=== PATIENT | female | born 1955 | race Caucasian/White ===

== ENCOUNTER → 2016-11-13 18:31 | Outpatient (CLI) | payer MEDICAID ==
[2014-02-25 14:29] VITALS: BMI 29.9
[~2016-11-13 18:31] MED LIST: PRINIVIL20 MG PO
== END | disposition home or self-care (01) ==
LOC: D.MAMMO 16:00
DX: Z12.31 Encounter for screening mammogram for malignant neoplasm of breast (principal)

== ENCOUNTER → 2016-11-27 09:11 | Outpatient (CLI) | payer MEDICAID ==
[2014-02-25 14:29] VITALS: BMI 29.9
== END | disposition home or self-care (01) ==
LOC: D.US 09:11
DX: R92.8 Other abnormal and inconclusive findings on diagnostic imaging of breast (principal)

== ENCOUNTER 2017-02-12 08:25 | Outpatient (CLI) | payer MEDICAID ==
[2014-02-25 14:29] VITALS: BMI 29.9
== END 2017-02-12 11:21 ==
LOC: D.MAMMO 08:25
DX: R92.8 Other abnormal and inconclusive findings on diagnostic imaging of breast (principal)

== ENCOUNTER 2017-04-20 13:04 | Emergency (ER) | payer MEDICAID ==
[2014-02-25 14:29] VITALS: BMI 29.9
[2017-04-20 13:35] LABS: BASOPHILS 0.5 % (0-2); EOSINOPHILS 0.8 % (0-7); HEMATOCRIT 45.4 % (36.0-48.0); HEMOGLOBIN 15.5 g/dL (12-16); IMMATURE GRANULOCYTES 0.2 % (0-5); LYMPHOCYTES 37.1 % (15-50); MCH 32.2 pg (26.0-34.0); MCHC 34.1 g/dL (31.0-37.0); MCV 94.2 fL (80.0-100.0); MEAN PLATELET VOLUME 10.2 fL (7.4-10.4); MONOCYTES 7.5 % (2-11); NEUTROPHILS 53.9 % (40-80); PLATELET COUNT 194 10x3/uL (130-400); RBC 4.82 10x6/uL (4.00-5.40); RDW 12.4 % (11.5-14.5); WBC 9.4 10x3/uL (4.8-10.8)
[2017-04-20 13:49] LABS: ALBUMIN 3.6 g/dL (3.4-5.0); ALKALINE PHOSPHATASE 91 U/L (46-116); ALT (SGPT) 17 U/L (10-68); BILIRUBIN - TOTAL 0.54 mg/dL (0.2-1.3); CALC OSMOLALITY 277 mosm/kg (275-300); CALCIUM 8.6 mg/dL (8.5-10.1); CARBON DIOXIDE 27.3 mmol/L (21.0-32.0); CHLORIDE - SERUM 103 mmol/L (98-107); CREATININE - SERUM 0.9 mg/dL (0.6-1.3); GLUCOSE 110 mg/dL (74-106); POTASSIUM - SERUM 3.3 mmol/L (3.5-5.1); PROTEIN - SERUM 7.2 g/dL (6.4-8.2); SODIUM 139 mmol/L (136-145); UREA NITROGEN 9 mg/dL (7-18); eGFR NON AFRICAN AMERICAN 67 mL/min (90-120)
[2017-04-20 14:00] LABS: CHOL - HDL RATIO 6.5 ratio (2.3-4.1); CHOLESTEROL, TOTAL 267 mg/dL (0-200); CKMB 1.1 U/L (0.0-3.6); CREATINE KINASE 90 UL (21-215); HDL CHOLESTEROL 41 mg/dL (32-96); LDL CHOLESTEROL 176 mg/dL (0-100); LDL-HDL RATIO 4.3 ratio (1.5-3.5); TRIGLYCERIDE 254 mg/dL (30-200)
[2017-04-20 14:08] LABS: TROPONIN-I < 0.017 ng/mL (0.000-0.060)
== END 2017-04-20 16:12 | disposition home or self-care (01) ==
LOC: D.ER 13:04
PROVIDERS: Emergency Medicine
DX: R07.9 Chest pain, unspecified (principal); Y84.8 Other medical procedures as the cause of abnormal reaction of the patient, or of later complication, without mention of misadventure at the time of the procedure; R06.02 Shortness of breath; I10 Essential (primary) hypertension; F17.200 Nicotine dependence, unspecified, uncomplicated; R06.00 Dyspnea, unspecified; R11.0 Nausea; M54.9 Dorsalgia, unspecified; M54.2 Cervicalgia

== ENCOUNTER 2017-04-29 11:52 | Outpatient (CLI) | payer MEDICAID ==
[~2017-04-29] VITALS: Ht 167.6 cm; Wt 74.5 kg
--- NOTE | ~2017-04-29 | HEMODYNAMI ---
PATIENT:JANETTE MELENDEZ MEDICAL RECORD: [id number] : 57 LOCATION:[place] ADMISSION DATE: 04/29/17 Generatedon:04/29/201715:36 Patient name: JANETTE MELENDEZ Patient #: [id number] SSN: : 1955 Date of study: 04/29/2017 Page: Of Hemodynamic Procedure Report Patient Data Patient Demographics Procedure consent was obtained First Name: JANETTE Gender: Female Last Name: NORA : 1955 Middle Initial: FRANCESCO Age: 62 year(s) Patient #: [id number] Race: Unknown Additional ID: [id number] Contact details [address]: [address] [place] [address] State: [place] City: [place] Zip code: [address] Past Medical History Allergies Allergen Reaction Date Comments Reported Aspirin 04/29/2017 Penicillins 04/29/2017 Sulfa drugs 04/29/2017 NSAIDs 04/29/2017 Admission Admission Data Admission Date: 04/29/2017 Admission Time: 11:52 Procedure Procedure Types Cath Procedure Diagnostic Procedure C [facility] w/Coronaries Miscellaneous Procedures Moderate Sedation up to 15 minutes Procedure Description Procedure Date Procedure Date: 04/29/2017 Procedure Start Time: 15:25 Procedure End Time: 15:36 Procedure Staff Name Function Paul Sharp MD Performing Physician Norah Abernathy RT Scrub Reid Grissom RT Scrub Marcellus Almanzar RN Nurse Saran Pearson RN Chopping Machine Operator Kathrine Weeks RT Monitor Procedure Data Cath Procedure Fluoroscopy Diagnostic fluoroscopy Total fluoroscopy Time: 2.7 time: 2.7 min min Diagnostic fluoroscopy Total fluoroscopy dose: 341 dose: 341 mGy mGy Contrast Material Contrast Material Type Amount (ml) Isovue 300 61 Entry Location Entry Primary Successful Side Size Upsize Upsize Entry Closure Lopez ccessful Closure Location (Fr) 1 (Fr) 2 (Fr) Remarks Device Remarks Radial Right 6 Fr Mechanical artery Short Compression Estimated blood loss: 10 ml Diagnostic catheters Device Type Used For End Catheter Placement Diagnostic Terumo 5Fr Right Coronary [place]uda 110cm catheter Angiography Diagnostic Terumo 5Fr Left Coronary [place] 110cm catheter Angiography Diagnostic Terumo 5Fr LV Angiography Saluda 110cm catheter Procedure Complications No complications Procedure Medications Medication Administration Route Dosage 0.9% NaCl I.V. 100 ml/hr Oxygen NC 2 l/min Heparin Flush Bag added to field 2 bags (1000units/500ml NS) Versed I.V. 2 mg Fentanyl I.V. 100 mcg Radial Cocktail I.A. 1 syringe (Verapomil 2mg/Nitro 400mcg/Heparin 1500units) Hemodynamics Rest Heart Rate: 65 (bpm) Pressure Samples Time Site Value (mmHg) Purpose Heart Use Rate(bpm) 15:32 LV 129/-7,7 EDP 66 15:33 AO 132/73(101) Pullback 88 15:33 LV 171/-13,14 Pullback 88 Gradients Valve Time Site 1 Site 2 Mean SEP/DFP Peak To Heart Use (mmHg) (sec/min) Peak Rate (mmHg) (bpm) Aortic 15:33 LV AO 20 24 39 88 171/-13,14 132/73(101) Calculations Valve P-P Mean Valve Index Valve Source Name Gradient Area Flow (cm2) Aortic 39 20 39 20 Snapshots Pre Cath Intra NCS Post Cath Vital Signs Time Heart Resp SPO2 etCO2 [id number] NIBP (mmHg) Rhythm Pain Sedation Rate (ipm) (%) (mmHg) (mmHg) Status Level (bpm) 15:15:18 67 18 96 0 0 160/92(114) NSR 0 (11) 10(A) , No pain 15:19:32 71 19 98 0 0 148/81(102) NSR 0 (11) 10(A) , No pain 15:23:50 60 17 97 0 0 122/71(86) NSR 0 (11) 10(A) , No pain 15:28:02 71 15 95 0 0 113/58(94) NSR 0 (11) 9(A) , No pain 15:32:10 65 16 92 0 0 102/60(84) NSR 0 (11) 10(A) , No pain Medications Time Medication Route Dose Verified Delivered Reason Notes Effectiveness by by 15:08:14 0.9% NaCl I.V. 100 Marcellus Marcellus Per ml/hr Jenelle Almanzar physician RN RN 15:08:30 Oxygen NC 2 l/min Marcellus Germain Per Jenelle ivory RN RN 15:08:57 Heparin Flush added 2 bags Marcellus Germain used for Bag to Jenelle Almanzar procedure (1000units/500ml field RN RN NS) 15:20:21 Versed I.V. 2 mg Marcellus Marcellus for sedation Jenelle Almanzar RN, RN 15:20:35 Fentanyl I.V. 100 mcg Marcellus Marcellus for sedation Jenelle Almanzar RN, RN 15:27:34 Radial Cocktail I.A. 1 Marcellus Paul for (Verapomil syringe Jenelle Sharp MD vasodilation 2mg/Nitro RN 400mcg/Heparin 1500units) Procedure Log Time Note 15:00:09 Saran Pearson RN sent for patient. Start room use. 15:00:10 Time tracking: Regular hours 15:00:15 Plan of Care:Hemodynamics will remain stable., Cardiac rhythm will remain stable., Comfort level will be maintained., Respiratory function will remain adequate., Patient/ family verbilizes understanding of procedure., Procedure tolerated without complication., Recovers from procedure without complications.. 15:05:50 Patient received from Pre/Post Procedure Room to [facility]3] 1 Alert and oriented. Tansferred to table in Supine position. 15:05:51 Warm blankets applied, and xiang hugger turned on for patient comfort. 15:05:51 Correct patient and procedure confirmed by team. 15:05:53 Signed procedure consent form obtained from patient. 15:05:54 ECG and BP/O2 sat monitors applied to patient. 15:05:55 Full Disclosure recording started 15:08:14 0.9% NaCl 100 ml/hr I.V. was administered by Marcellus Almanzar RN; Per physician; 15:08:30 Oxygen 2 l/min NC was administered by Marcellus Almanzar RN; Per physician; 15:08:57 Heparin Flush Bag (1000units/500ml NS) 2 bags added to field was administered by Marcellus Almanzar RN; used for procedure; 15:14:10 Vital chart was started 15:14:21 Rhythm: sinus bradycardia 15:14:33 H&P Date Dictated: 04/23/2017 Within 30 days and on chart., H&P Addendum completed by physician on day of procedure. (MUST COMPLETE FOR ALL OUTPATIENTS). 15:14:34 Pre-procedure instructions explained to patient. 15:14:35 Pre-op teaching completed and patient verbalized understanding. 15:15:22 Family in patients room. 15:15:24 Patient NPO since Midnight. 15:15:29 Patient allergic to Aspirin 15:15:34 Patient allergic to Penicillins 15:15:39 Patient allergic to Sulfa drugs 15:15:47 Patient allergic to NSAIDs 15:15:50 Is the patient allergic to Iodine/contrast media? No. 15:15:51 Is patient on blood thinner?No 15:16:02 Patient diabetic? No. 15:16:05 Previous problem with sedation/anesthesia? No ? 15:16:06 Snore? Yes 15:16:07 Sleep apnea? No 15:16:09 Deviated septum? No 15:16:10 Opens mouth fully? Yes 15:16:10 Sticks out tongue? Yes 15:16:12 Airway obstruction? No ? 15:16:16 Dentures? Yes OUT 15:16:19 Pre procedure: right dorsailis pedis pulse 2+ Normal; easily identifiable; not easily obliterated 15:16:21 Modified Charles's test Ulnar < 7 seconds 15:16:23 Patient pain scale 0/10 ?. 15:16:30 IV patent on arrival in left hand with 0.9% NaCl at [facility]. 15:16:32 Lab results completed and on chart. 15:16:37 Right Radial & Right Groin area was prepped with chlora-prep and draped in sterile fashion 15:16:38 Alarms reviewed by R. N. 15:16:38 Sharps counted by scrub and verified by R.N. 15:16:41 Use device set Radial Dx 15:16:42 Acist Syringe opened to sterile field. 15:16:42 Medline Cath Pack opened to sterile field. 15:16:43 Bag Decanter opened to sterile field. 15:16:43 Terumo 6Fr Slender Glidesheath opened to sterile field. 15:16:43 St Jaime 260cm J .035 wire opened to sterile field. 15:16:44 Acist Hand Control opened to sterile field. 15:16:44 Acist Manifold opened to sterile field. 15:16:45 MBrace Wrist Support opened to sterile field. 15:18:13 Final Timeout: patient, procedure, and site verified with staff and physician. All members of the team are in agreement. 15:18:16 Right Radial site verified by team. 15:18:19 Physical assessment completed. ASA score P 2 - A patient with mild systemic disease as per Paul Shrap MD. 15:18:23 Sedation plan: IV Moderate Sedation Versed, Fentanyl 15:18:50 Baseline sample Acquired. 15:20:21 Versed 2 mg I.V. was administered by Marcellus Almanzar RN; for sedation; 15:20:35 Fentanyl 100 mcg I.V. was administered by Marcellus Almanzar RN; for sedation; 15:20:48 Zero performed for pressure channel P1 15:20:52 Zero performed for pressure channel P1 15:20:59 Zero performed for pressure channel P1 15:24:49 Procedure started. 15:25:08 Local anesthetic to right femoral artery with Lidocaine 2% by Paul Sharp MD.INITIAL ACCESS ONLY 15:26:37 A 6 Fr Short sheath was inserted into the Right Radial artery 15:27:34 Radial Cocktail (Verapomil 2mg/Nitro 400mcg/Heparin 1500units) 1 syringe I.A. was administered by Paul Sharp MD; for vasodilation; 15:28:20 A Diagnostic Terumo 5Fr Saluda 110cm catheter was advanced over the wire and used for Right Coronary Angiography. 15:31:00 A Diagnostic Terumo 5Fr Saluda 110cm catheter was advanced over the wire and used for Left Coronary Angiography. 15:31:44 A Diagnostic Terumo 5Fr Saluda 110cm catheter was advanced over the wire and used for LV Angiography. 15:32:13 LV gram done using MUNGUIA 15:32:14 LV hemodynamics recorded. 15:32:16 Injector settings: Ml/sec: 5, Volume: 15, 15:32:52 EF : 60 % 15:33:25 Catheter removed. 15:33:33 Sheath removed intact; hemostasis achieved with Mechanical Compression to the Right Radial artery. 15:33:35 Procedure ended.(Physican Out) 15:33:46 Fluoroscopy time 02.70 minutes. 15:33:50 Fluoroscopy dose: 341 mGy 15:33:50 Flurop Dose total: 341 15:33:54 Contrast amount:Isovue 300 61ml. 15:33:56 Sharps counted by scrub and verified by R.N. 15:33:58 TR band inflated with 12cc of air. 15:33:59 Insertion/operative site no bleeding no hematoma. 15:34:05 Post right radial artery:stable, clean and dry 15:34:08 Post Procedure Pulses reassessed and unchanged 15:34:14 Post-procedure physical assessment completed. ASA score P 2 - A patient with mild systemic disease as per Paul Sharp MD. 15:34:20 Post procedure rhythm: unchanged. 15:34:23 Estimated blood loss: 10 ml 15:34:24 Post procedure instruction explained to patient.Patient verbalizes understanding. 15:34:25 Patient needs reinforcement of post procedure teaching. 15:34:34 Procedure type changed to Cath procedure, Diagnostic procedure, LHC, LHC w/Coronaries, Miscellaneous Procedures, Moderate Sedation up to 15 minutes 15:34:39 Procedure Complication : No complications 15:34:42 See physician's report for complete and final results. 15:35:05 Terumo TR Band Standard opened to sterile field. 15:35:30 Cook 21G 4cm Radial Needle opened to sterile field. 15:35:49 Procedure and supply charges have been captured, reviewed, submitted and are correct. 15:36:22 Vital chart was stopped 15:36:24 Report given to Pre/Post Procedure Room. 15:36:27 Patient transfered to Pre/Post Procedure Room with Stretcher. 15:36:37 Procedure ended. 15:36:37 Full Disclosure recording stopped 15:36:40 End room use (Document Last) Device Usage Item Name Manufacture Quantity Catalog Hospital Part Current Minimal Lot# / Number Charge Number Stock Stock Serial# Code Acist Acist 1 12654 [id number] 876685 220819 20 Syringe Medical Systems Inc Medline Cardinal 1 [id number] 225073 95571 988576 5 Cath Pack Health Bag Microtek 1 2001S [id number] 75201 285688 5 Decanter Medical Inc. Terumo 6Fr Terumo 1 [id number] 352804 470813 531452 [address] Jaime 1 695895 924970 227112 225373 30 260cm J .035 wire Acist Hand Acist 1 14073 983432 779013 547220 5 Control Medical Systems Inc Acist Acist 1 55355 233832 385779 196930 5 Manifold Medical Systems Inc race Advanced 1 140-0250-00 205735 33717 029299 5 Wrist Vascular Support Dynamics Diagnostic Terumo 1 89-3028 788097 707002 149174 5 Terumo 5Fr Saluda 110cm catheter Terumo TR Terumo 1 [id number] 279297 234258 228481 40 Band Standard Cook 21G [facility] 1 [id number] 916005 366153 000117 5 4cm Radial Needle Signature Audit [place] Stage Time Signature Unsigned Intra-Procedure 04/29/2017 Kathrine 3:36:51 PM Counts RT(R) Signatures Monitor : Kathrine Signature : Counts RT Date : Time : [address] [address]
[2017-04-29 12:37] LABS: BASOPHILS 0.5 % (0-2); HEMATOCRIT 44.5 % (36.0-48.0); HEMOGLOBIN 15.2 g/dL (12-16); IMMATURE GRANULOCYTES 0.4 % (0-5); LYMPHOCYTES 41.9 % (15-50); MCH 32.3 pg (26.0-34.0); MCHC 34.2 g/dL (31.0-37.0); MCV 94.5 fL (80.0-100.0); MEAN PLATELET VOLUME 10.1 fL (7.4-10.4); MONOCYTES 9.2 % (2-11); PLATELET COUNT 191 10x3/uL (130-400); RBC 4.71 10x6/uL (4.00-5.40); RDW 12.4 % (11.5-14.5); WBC 9.8 10x3/uL (4.8-10.8)
[2017-04-29] MEDS ORDERED: METOPROLOL TART25 MG PO (12:40)
[2017-04-29 12:47] LABS: CALC OSMOLALITY 276 mosm/kg (275-300); CALCIUM 8.5 mg/dL (8.5-10.1); CARBON DIOXIDE 25.9 mmol/L (21.0-32.0); CHLORIDE - SERUM 104 mmol/L (98-107); CREATININE - SERUM 0.6 mg/dL (0.6-1.3); GLUCOSE 100 mg/dL (74-106); POTASSIUM - SERUM 4.3 mmol/L (3.5-5.1); SODIUM 139 mmol/L (136-145); UREA NITROGEN 10 mg/dL (7-18); eGFR NON AFRICAN AMERICAN > 90 mL/min (90-120)
[2017-04-29 12:49] VITALS: BP 136/74; Ht 167.6 cm; Wt 74.5 kg
--- NOTE | 2017-04-29 16:00 | NUR ---
SANDWICH AND COLA SERVED, TR BAND INTACT-NO BLEEDING AT SITE,VSS
--- NOTE | 2017-04-29 16:30 | NUR ---
NO CHANGES IN ASSESSMENT, TR BAND INTACT, RESTING
--- NOTE | 2017-04-29 18:10 | NUR ---
IV D'C WITH CATH TIP INTACT, WRITTEN AND VERBAL INSTRUCTIONS GIVEN TO PT AND DAUGHTER-VERBAL UNDERSTANDING NOTED. TR BAND OFF WITH BANDAID PLACED OVER SITE AND BRACE REAPPLIED. D'C HOME WITH DAUGHTER.
== END 2017-04-29 18:15 | disposition home or self-care (01) ==
LOC: D.CATH 11:52
PROVIDERS: Internal Medicine Cardiovascular Disease
DX: I20.9 Angina pectoris, unspecified (principal); Z01.812 Encounter for preprocedural laboratory examination

== ENCOUNTER 2017-07-14 09:48 | Emergency (ER) | payer MEDICAID ==
[2017-04-29 12:49] VITALS: BMI 26.5
[~2017-07-14 09:48] MED LIST changes: +METOPROLOL TART25 MG PO
[2017-07-14 11:14] LABS: BASOPHILS 0.4 % (0-2); EOSINOPHILS 1.4 % (0-7); HEMATOCRIT 43.5 % (36.0-48.0); HEMOGLOBIN 14.9 g/dL (12-16); IMMATURE GRANULOCYTES 0.4 % (0-5); LYMPHOCYTES 34.5 % (15-50); MCH 32.1 pg (26.0-34.0); MCHC 34.3 g/dL (31.0-37.0); MCV 93.8 fL (80.0-100.0); MEAN PLATELET VOLUME 10.5 fL (7.4-10.4); MONOCYTES 10.3 % (2-11); PLATELET COUNT 188 10x3/uL (130-400); RBC 4.64 10x6/uL (4.00-5.40); RDW 12.8 % (11.5-14.5); WBC 8.5 10x3/uL (4.8-10.8)
[2017-07-14 12:52] LABS: ALBUMIN 3.3 g/dL (3.4-5.0); ALKALINE PHOSPHATASE 90 U/L (46-116); ALT (SGPT) 26 U/L (10-68); BILIRUBIN - TOTAL 0.51 mg/dL (0.2-1.3); CALC OSMOLALITY 276 mosm/kg (275-300); CALCIUM 8.8 mg/dL (8.5-10.1); CARBON DIOXIDE 22.9 mmol/L (21.0-32.0); CHLORIDE - SERUM 106 mmol/L (98-107); CREATININE - SERUM 0.7 mg/dL (0.6-1.3); GLUCOSE 99 mg/dL (74-106); LIPASE 177 U/L (73-393); POTASSIUM - SERUM 4.1 mmol/L (3.5-5.1); SODIUM 139 mmol/L (136-145); UREA NITROGEN 10 mg/dL (7-18); eGFR NON AFRICAN AMERICAN 90 mL/min (90-120)
[2017-07-14 15:20] LABS: APPEARANCE CLEAR (CLEAR); BILIRUBIN NEGATIVE (NEGATIVE); COLOR YELLOW (YELLOW); GLUCOSE NEGATIVE (NEGATIVE); KETONE NEGATIVE (NEGATIVE); NITRITE NEGATIVE (NEGATIVE); PROTEIN NEGATIVE (NEGATIVE); UROBILINOGEN NORMAL (NORMAL)
[2017-07-14 15:22] LABS: BACTERIA FEW /hpf (NONE SEEN); EPITHELIAL CELLS 0-5 /hpf (0-5); RED CELLS - URINE OCC /hpf (0-5); WHITE CELLS - URINE OCC /hpf (0-5)
== END 2017-07-14 16:18 | disposition home or self-care (01) ==
LOC: D.ER 09:48
PROVIDERS: Emergency Medicine
DX: R10.9 Unspecified abdominal pain (principal); I10 Essential (primary) hypertension

== ENCOUNTER → 2017-07-23 13:16 | Outpatient (CLI) | payer MEDICAID ==
[2017-04-29 12:49] VITALS: BMI 26.5
== END | disposition home or self-care (01) ==
LOC: D.RAD 13:16
DX: R10.9 Unspecified abdominal pain (principal)

== ENCOUNTER 2017-10-05 10:08 | Emergency (ER) | payer MEDICAID ==
[2017-04-29 12:49] VITALS: BMI 26.5
[2017-10-05 10:32] LABS: BASOPHILS 0.5 % (0-2); EOSINOPHILS 1.1 % (0-7); HEMATOCRIT 44.9 % (36.0-48.0); HEMOGLOBIN 15.4 g/dL (12-16); IMMATURE GRANULOCYTES 0.5 % (0-5); LYMPHOCYTES 39.7 % (15-50); MCH 32.4 pg (26.0-34.0); MCHC 34.3 g/dL (31.0-37.0); MCV 94.5 fL (80.0-100.0); MONOCYTES 8.6 % (2-11); NEUTROPHILS 49.6 % (40-80); PLATELET COUNT 206 10x3/uL (130-400); RBC 4.75 10x6/uL (4.00-5.40); RDW 12.6 % (11.5-14.5); WBC 8.9 10x3/uL (4.8-10.8)
[2017-10-05 10:54] LABS: APPEARANCE CLEAR (CLEAR); COLOR YELLOW (YELLOW)
[2017-10-05 10:55] LABS: BILIRUBIN NEGATIVE (NEGATIVE); GLUCOSE NEGATIVE (NEGATIVE); KETONE NEGATIVE (NEGATIVE); NITRITE NEGATIVE (NEGATIVE); PROTEIN NEGATIVE (NEGATIVE); UROBILINOGEN NORMAL (NORMAL)
[2017-10-05 11:08] LABS: ALBUMIN 3.6 g/dL (3.4-5.0); ALKALINE PHOSPHATASE 84 U/L (46-116); ALT (SGPT) 18 U/L (10-68); BILIRUBIN - TOTAL 0.49 mg/dL (0.2-1.3); CALC OSMOLALITY 283 mosm/kg (275-300); CALCIUM 8.6 mg/dL (8.5-10.1); CARBON DIOXIDE 27.9 mmol/L (21.0-32.0); CHLORIDE - SERUM 106 mmol/L (98-107); CREATININE - SERUM 0.7 mg/dL (0.6-1.3); GLUCOSE 99 mg/dL (74-106); POTASSIUM - SERUM 4.1 mmol/L (3.5-5.1); PROTEIN - SERUM 7.2 g/dL (6.4-8.2); SODIUM 143 mmol/L (136-145); UREA NITROGEN 10 mg/dL (7-18); eGFR NON AFRICAN AMERICAN 90 mL/min (90-120)
[2017-10-05 11:15] LABS: CKMB 1.8 U/L (0.0-3.6); CREATINE KINASE 83 UL (21-215); MAGNESIUM - SERUM 2.1 mg/dL (1.8-2.4); PRO BNP 134 pg/mL (0-125)
[2017-10-05 11:18] LABS: TROPONIN-I < 0.017 ng/mL (0.000-0.060)
== END 2017-10-05 12:05 | disposition home or self-care (01) ==
LOC: D.ER 10:08
PROVIDERS: Family Medicine
DX: G45.9 Transient cerebral ischemic attack, unspecified (principal); R42 Dizziness and giddiness; I10 Essential (primary) hypertension

== ENCOUNTER 2018-05-25 07:38 | Inpatient (IN) | payer MEDICAID ==
[~2018-05-25] VITALS: Ht 167.6 cm; Wt 86.4 kg
[2018-05-25] VITALS (7 sets, daily range): BP systolic 117–170; BP diastolic 65–88; BMI 30.7; BMI 30.6
--- NOTE | ~2018-05-25 | EC ---
PATIENT:JANETTE MELENDEZ DATE OF SERVICE: 05/25/18 SEX: F MEDICAL RECORD: [id number] DATE OF : [birth year] LOCATION:D.M2 D.213 AGE OF PATIENT: 63 ADMISSION DATE: 05/25/18 REFERRING PHYSICIAN: INTERPRETING PHYSICIAN: FRACISCO LUKE MD ECHOCARDIOGRAM REPORT ECHO CHARGES 4 ECHO COMPLETE Date: 05/26/18 CLINICAL DIAGNOSIS: CP, DYSPNEA, ECHOCARDIOGRAPHIC MEASUREMENTS (adult normal given) AC root (d.<3.7cm) 2.9 cm LV Septum d (<1.2 cm> 1.9 cm Valve Excursion 1.1 cm LV Septum (systole) 2.0 cm Left Atria (s.<4.0cm> 3.1 cm LVPW d(<1.2cm) 1.0 cm RV (d.<2.3cm) 3.4 cm LVPW (sytole) 1.1 cm LV diastole(<5.6CM) 4.6 cm MV E-F(>70mm/sec) cm LV systole 3.0 cm LVOT Diameter 1.6 cm MV exc.(>10mm) cm Est.ejection fraction (50-75%) % DOPPLER: LVIT cm/sec A 78 cm/sec E 77 cm/sec LA cm/sec RVSP 27.8 mmHg LVOT cm/sec AOP1/2T m/s Asc. Ao cm/sec RVOT 62 cm/sec RA cm/sec PA 70 cm/sec AV Gradient Peak 10.1 mmHg AV Mean 5.1 mmHg AV Area 2.1 cm MV Gradient Peak 3.6 mmHg MV Mean 2.1 mmHg MV Area cm COMMENTS: Dobie Worker: Jatin DUCKWORTH Marketing Forecaster: 3 Dr. Solitario TAPE# PACS Pericardial Effusion N DATE OF SERVICE: 05/26/2018 ECHOCARDIOGRAM DATE OF SERVICE: 05/26/2018 FINDINGS: 1. Left ventricular chamber size is within normal limits. Left ventricular systolic function is normal. Overall ejection fraction estimated at 60%. 2. Left atrium, right atrium and right ventricular chamber sizes are within ECHOCARDIOGRAM REPORT [id number] JANETTE MELENDEZ normal limits. 3. Valvular structures have normal structure and motion. 4. Doppler interrogation reveals trace mitral regurgitation, mild tricuspid regurgitation, no other valvular insufficiency or stenosis. Pulmonary systolic pressure is estimated 28 mmHg. 5. No evidence of pericardial effusion or left ventricular thrombus. TRANSINT:[id number] Voice Confirmation ID: [id number] DOCUMENT ID: [id number] FRACISCO LUKE MD at 1722 CC: [id number] DICTATION DATE: 05/26/18 1534 AXLE AND FRAME MECHANIC: 05/26/18 1540 ADM IN [facility] [address] [place] [id number]
--- NOTE | ~2018-05-25 | CN ---
PATIENT NAME:JANETTE DURAN MEDICAL RECORD: [id number] : 57 LOCATION:D. D.2131 ADMIT DATE: 05/25/18 ACCOUNT: [id number] CONSULTING PHYSICIAN: RAIN GARCIA MD REFERRING PHYSICIAN: CAROLYN YOUSIF MD DATE OF CONSULTATION: 05/25/2018 CONSULT REQUESTING PHYSICIAN: Carolyn Yousif MD REASON FOR CONSULTATION: Pneumonia and pleural effusion. HISTORY OF PRESENT ILLNESS: Ms. Duran is a 63-year-old female who is sick for the last few days. She has quit smoking a week ago. She has worsening shortness of breath on exertion. She has pleuritic type of chest pain. She is coughing without much sputum production. She is also having some fever and chill. The cough is productive with green color sputum. There is no associated nausea or vomiting. No diarrhea. REVIEW OF THE SYSTEMS: As in history of present illness. PAST MEDICAL HISTORY: 1. Hypertension. 2. History of pneumonia. PAST SURGICAL HISTORY: 1. She has cholecystectomy. 2. Hysterectomy. 3. Breast augmentation 37 years ago. ALLERGIES: SHE IS ALLERGIC TO SULFA, ASPIRIN, NSAID, AND PENICILLIN. PRESENT MEDICATIONS: [employer] ([employer])tech was reviewed. PERSONAL AND SOCIAL HISTORY: The patient still continues to smoke. She claims she quit it a week ago. She is nondrinker. FAMILY HISTORY: Noncontributory. PHYSICAL EXAMINATION: GENERAL: The patient is now lying comfortably in bed. She is not in acute distress. VITAL SIGNS: Blood pressure is 134/65, pulse is 95, respiration is 28, temperature is 99.3, and SpO2 is 94% on room air. HEENT: Conjunctivae are pink. Sclerae are not icteric. NECK: Neck is supple. No JVD. CHEST: The chest excursion is equal on both sides. There is wheezing on forceful expiration with bilateral crackles. HEART: Rhythm regular. Normal sound. No murmur. ABDOMEN: Abdomen is soft. Bowel sounds present. No hepatosplenomegaly. RECTAL: Deferred. EXTREMITIES: No cyanosis. No clubbing. No pedal edema. SKIN: The skin is warm. Normal turgor. CENTRAL NERVOUS SYSTEM: The patient is awake and alert. There is no obvious cranial nerve abnormality. The gait was not tested. CONSULT REPORT [id number] JANETTE DURAN CHEST RADIOGRAPH: Bilateral lower lobe infiltrate with bilateral pleural effusion. LABORATORY DATA: CBC; WBC 13.7, hemoglobin 15.3, hematocrit 44.7, and platelet count is 198. Chemistry; sodium 136, potassium 3.8, BUN is 6, and creatinine 0.8. IMPRESSION: 1. Pneumonia, bilateral, most likely community-acquired pneumonia. I doubt aspiration. 2. Bilateral pleural effusion. 3. Acute exacerbation of COPD. 4. Chest pain, most likely pleurisy. 5. Leukocytosis. 6. Tobacco dependence syndrome. RECOMMENDATION: 1. Continue Zithromax and Rocephin. 2. Methylprednisolone IV. 3. Albuterol/ipratropium nebulizer. 4. Brovana and budesonide nebulizer. 5. Followup labs and chest radiograph. 6. Pain control. Dr. Yousif, thank you for involving me in the care of Ms. Duran. TRANSINT:[id number] Voice Confirmation ID: [id number] DOCUMENT ID: [id number] RAIN GARCIA MD at 1301 CC: [id number] DICTATION DATE: 05/25/18 1755 BEADWORKER: 05/25/18 1828 DIS IN 06/02/[address] [place] [id number] [place] [id number]
[2018-05-25] MEDS ORDERED: LEVAQUIN250 MG PO (07:45)
[2018-05-25] MEDS ORDERED: VENTOLIN HFA18 GM INH (07:45)
[2018-05-25 08:06] LABS: BASOPHILS 0.2 % (0-2); EOSINOPHILS 0.2 % (0-7); HEMATOCRIT 44.7 % (36.0-48.0); HEMOGLOBIN 15.3 g/dL (12-16); IMMATURE GRANULOCYTES 0.4 % (0-5); LYMPHOCYTES 18.8 % (15-50); MCH 32.4 pg (26.0-34.0); MCHC 34.2 g/dL (31.0-37.0); MCV 94.7 fL (80.0-100.0); MEAN PLATELET VOLUME 10.2 fL (7.4-10.4); MONOCYTES 14.2 % (2-11); NEUTROPHILS 66.2 % (40-80); PLATELET COUNT 198 10x3/uL (130-400); RBC 4.72 10x6/uL (4.00-5.40); RDW 12.5 % (11.5-14.5); WBC 13.7 10x3/uL (4.8-10.8)
[2018-05-25 08:23] LABS: ALKALINE PHOSPHATASE 97 U/L (46-116); ALT (SGPT) 21 U/L (10-68); BILIRUBIN - TOTAL 0.56 mg/dL (0.2-1.3); CALC OSMOLALITY 270 mosm/kg (275-300); CALCIUM 8.7 mg/dL (8.5-10.1); CARBON DIOXIDE 23.4 mmol/L (21.0-32.0); CHLORIDE - SERUM 104 mmol/L (98-107); CREATININE - SERUM 0.8 mg/dL (0.6-1.3); GLUCOSE 115 mg/dL (74-106); MAGNESIUM - SERUM 1.9 mg/dL (1.8-2.4); POTASSIUM - SERUM 3.8 mmol/L (3.5-5.1); PROTEIN - SERUM 7.2 g/dL (6.4-8.2); SODIUM 136 mmol/L (136-145); UREA NITROGEN 6 mg/dL (7-18); eGFR NON AFRICAN AMERICAN 77 mL/min (90-120)
[2018-05-25 17:41] LABS: CKMB 0.8 U/L (0.0-3.6); CREATINE KINASE 70 UL (21-215)
[2018-05-25 17:46] LABS: TROPONIN-I < 0.017 ng/mL (0.000-0.060)
[2018-05-25 23:19] LABS: CKMB 0.7 U/L (0.0-3.6); CREATINE KINASE 62 UL (21-215)
[2018-05-25 23:20] LABS: TROPONIN-I < 0.017 ng/mL (0.000-0.060)
[2018-05-26 04:00] VITALS: BP 123/65
[2018-05-26 06:23] LABS: CKMB 1.2 U/L (0.0-3.6); CREATINE KINASE 59 UL (21-215)
[2018-05-26 06:25] LABS: TROPONIN-I < 0.017 ng/mL (0.000-0.060)
[2018-05-26 09:18] VITALS: BP 126/60
[2018-05-26 11:45] VITALS: BP 100/53
[2018-05-26 16:47] VITALS: BP 122/69
[2018-05-26 16:52] LABS: BASOPHILS 0.1 % (0-2); EOSINOPHILS 0.1 % (0-7); HEMOGLOBIN 13.7 g/dL (12-16); IMMATURE GRANULOCYTES 0.3 % (0-5); LYMPHOCYTES 18.3 % (15-50); MCH 32.3 pg (26.0-34.0); MCHC 34.3 g/dL (31.0-37.0); MCV 94.3 fL (80.0-100.0); MEAN PLATELET VOLUME 9.8 fL (7.4-10.4); MONOCYTES 6.9 % (2-11); NEUTROPHILS 74.3 % (40-80); PLATELET COUNT 187 10x3/uL (130-400); RBC 4.24 10x6/uL (4.00-5.40); RDW 12.4 % (11.5-14.5); WBC 16.4 10x3/uL (4.8-10.8)
[2018-05-26 17:18] LABS: ALBUMIN 2.7 g/dL (3.4-5.0); ANION GAP 14.4 mmol/L (8-16); BILIRUBIN - TOTAL 0.2 mg/dL (0.2-1.3); CALCIUM 8.2 mg/dL (8.5-10.1); CARBON DIOXIDE 23.9 mmol/L (21.0-32.0); POTASSIUM - SERUM 3.3 mmol/L (3.5-5.1); PROTEIN - SERUM 6.8 g/dL (6.4-8.2)
[2018-05-26 20:00] VITALS: BP 141/74
[2018-05-27 04:00] VITALS: BP 154/81
[2018-05-27 05:33] LABS: BASOPHILS 0.2 % (0-2); EOSINOPHILS 0.2 % (0-7); HEMATOCRIT 39.3 % (36.0-48.0); HEMOGLOBIN 13.5 g/dL (12-16); IMMATURE GRANULOCYTES 0.5 % (0-5); LYMPHOCYTES 22.9 % (15-50); MCHC 34.4 g/dL (31.0-37.0); MCV 93.1 fL (80.0-100.0); MONOCYTES 9.4 % (2-11); NEUTROPHILS 66.8 % (40-80); PLATELET COUNT 216 10x3/uL (130-400); RBC 4.22 10x6/uL (4.00-5.40); RDW 12.6 % (11.5-14.5); WBC 16.8 10x3/uL (4.8-10.8)
[2018-05-27 06:01] LABS: ALBUMIN 2.7 g/dL (3.4-5.0); ALKALINE PHOSPHATASE 78 U/L (46-116); ALT (SGPT) 19 U/L (10-68); BILIRUBIN - TOTAL 0.24 mg/dL (0.2-1.3); CALC OSMOLALITY 273 mosm/kg (275-300); CALCIUM 8.3 mg/dL (8.5-10.1); CARBON DIOXIDE 23.4 mmol/L (21.0-32.0); CHLORIDE - SERUM 103 mmol/L (98-107); GLUCOSE 107 mg/dL (74-106); POTASSIUM - SERUM 3.5 mmol/L (3.5-5.1); PROTEIN - SERUM 6.7 g/dL (6.4-8.2); SODIUM 137 mmol/L (136-145); UREA NITROGEN 12 mg/dL (7-18)
[2018-05-27 06:04] LABS: CREATININE - SERUM 0.7 mg/dL (0.6-1.3); eGFR NON AFRICAN AMERICAN 90 mL/min (90-120)
[2018-05-27 07:59] VITALS: BP 148/89
[2018-05-27 11:21] VITALS: BP 116/65
[2018-05-27 15:24] VITALS: BP 134/73
[2018-05-27 20:00] VITALS: BP 133/66
[2018-05-28] VITALS: BP 119/54
[2018-05-28 02:41] LABS: BASOPHILS 0.3 % (0-2); EOSINOPHILS 0.3 % (0-7); HEMATOCRIT 40.4 % (36.0-48.0); HEMOGLOBIN 13.7 g/dL (12-16); IMMATURE GRANULOCYTES 0.5 % (0-5); LYMPHOCYTES 27.8 % (15-50); MCH 31.9 pg (26.0-34.0); MCHC 33.9 g/dL (31.0-37.0); MEAN PLATELET VOLUME 10.8 fL (7.4-10.4); MONOCYTES 11.4 % (2-11); NEUTROPHILS 59.7 % (40-80); PLATELET COUNT 190 10x3/uL (130-400); RDW 12.6 % (11.5-14.5)
[2018-05-28 02:49] LABS: ALBUMIN 2.6 g/dL (3.4-5.0); ALKALINE PHOSPHATASE 80 U/L (46-116); ALT (SGPT) 21 U/L (10-68); BILIRUBIN - TOTAL 0.49 mg/dL (0.2-1.3); CALC OSMOLALITY 275 mosm/kg (275-300); CALCIUM 8.6 mg/dL (8.5-10.1); CARBON DIOXIDE 24.1 mmol/L (21.0-32.0); CHLORIDE - SERUM 103 mmol/L (98-107); CREATININE - SERUM 0.8 mg/dL (0.6-1.3); GLUCOSE 119 mg/dL (74-106); POTASSIUM - SERUM 3.8 mmol/L (3.5-5.1); SODIUM 138 mmol/L (136-145); UREA NITROGEN 9 mg/dL (7-18); eGFR NON AFRICAN AMERICAN 77 mL/min (90-120)
[2018-05-28 04:00] VITALS: BP 121/69
[2018-05-28 07:59] VITALS: BP 123/68
[2018-05-28 11:25] VITALS: BP 121/63
[2018-05-28 14:57] VITALS: BP 110/62
[2018-05-28 21:01] VITALS: BP 118/69
[2018-05-29 01:32] VITALS: BP 105/56
[2018-05-29 04:45] LABS: BASOPHILS 0.1 % (0-2); EOSINOPHILS 0 % (0-7); HEMATOCRIT 39.8 % (36.0-48.0); HEMOGLOBIN 13.7 g/dL (12-16); IMMATURE GRANULOCYTES 0.8 % (0-5); LYMPHOCYTES 10.1 % (15-50); MCH 31.9 pg (26.0-34.0); MCHC 34.4 g/dL (31.0-37.0); MCV 92.6 fL (80.0-100.0); MEAN PLATELET VOLUME 9.7 fL (7.4-10.4); MONOCYTES 2.6 % (2-11); NEUTROPHILS 86.4 % (40-80); RDW 12.3 % (11.5-14.5); WBC 16.7 10x3/uL (4.8-10.8)
[2018-05-29 04:56] LABS: PLATELET COUNT 268 10x3/uL (130-400)
[2018-05-29 05:06] LABS: ALBUMIN 2.4 g/dL (3.4-5.0); ALKALINE PHOSPHATASE 78 U/L (46-116); ALT (SGPT) 23 U/L (10-68); BILIRUBIN - TOTAL 0.26 mg/dL (0.2-1.3); CALC OSMOLALITY 280 mosm/kg (275-300); CALCIUM 8.7 mg/dL (8.5-10.1); CARBON DIOXIDE 23.2 mmol/L (21.0-32.0); CHLORIDE - SERUM 104 mmol/L (98-107); CREATININE - SERUM 0.8 mg/dL (0.6-1.3); POTASSIUM - SERUM 3.8 mmol/L (3.5-5.1); SODIUM 138 mmol/L (136-145); UREA NITROGEN 10 mg/dL (7-18); eGFR NON AFRICAN AMERICAN 77 mL/min (90-120)
[2018-05-29 05:17] LABS: GLUCOSE 208 mg/dL (74-106)
[2018-05-29 05:48] VITALS: BP 124/64
[2018-05-29 08:20] LABS: HAPTOGLOBIN 355 mg/dL (34-200)
[2018-05-29 11:53] VITALS: Ht 167.6 cm; Wt 86.4 kg
[2018-05-29 21:20] VITALS: BP 124/65
[2018-05-30 05:59] VITALS: BP 135/70
[2018-05-30 06:24] LABS: HEMATOCRIT 37.9 % (36.0-48.0); MCH 31.9 pg (26.0-34.0); MCHC 34.3 g/dL (31.0-37.0); MCV 93.1 fL (80.0-100.0); MEAN PLATELET VOLUME 9.6 fL (7.4-10.4); PLATELET COUNT 327 10x3/uL (130-400); RBC 4.07 10x6/uL (4.00-5.40); RDW 12.5 % (11.5-14.5); WBC 24.4 10x3/uL (4.8-10.8)
[2018-05-30 07:08] LABS: ALBUMIN 2.4 g/dL (3.4-5.0); ALKALINE PHOSPHATASE 75 U/L (46-116); ALT (SGPT) 24 U/L (10-68); BILIRUBIN - TOTAL 0.17 mg/dL (0.2-1.3); CALC OSMOLALITY 282 mosm/kg (275-300); CALCIUM 8.6 mg/dL (8.5-10.1); CARBON DIOXIDE 23.8 mmol/L (21.0-32.0); CHLORIDE - SERUM 104 mmol/L (98-107); CREATININE - SERUM 0.7 mg/dL (0.6-1.3); GLUCOSE 180 mg/dL (74-106); POTASSIUM - SERUM 3.7 mmol/L (3.5-5.1); PROTEIN - SERUM 6.8 g/dL (6.4-8.2); SODIUM 139 mmol/L (136-145); UREA NITROGEN 12 mg/dL (7-18); eGFR NON AFRICAN AMERICAN 90 mL/min (90-120)
[2018-05-30 08:20] LABS: LYMPHOCYTES 8 % (15-50); MONOCYTES 2 % (2-11); NEUTROPHILS 89 % (40-80); PLATELET ESTIMATE NORMAL
[2018-05-30 08:21] LABS: PLATELET MORPHOLOGY PLT CLUMPS PRESENT
[2018-05-30 21:04] VITALS: BP 161/93
[2018-05-31 01:13] VITALS: BP 134/80
[2018-05-31 05:15] LABS: BASOPHILS 0.1 % (0-2); EOSINOPHILS 0 % (0-7); HEMATOCRIT 39.6 % (36.0-48.0); HEMOGLOBIN 13.4 g/dL (12-16); IMMATURE GRANULOCYTES 4.4 % (0-5); LYMPHOCYTES 12.5 % (15-50); MCH 31.8 pg (26.0-34.0); MCHC 33.8 g/dL (31.0-37.0); MCV 94.1 fL (80.0-100.0); MEAN PLATELET VOLUME 10.6 fL (7.4-10.4); MONOCYTES 5.9 % (2-11); NEUTROPHILS 77.1 % (40-80); PLATELET COUNT 332 10x3/uL (130-400); RBC 4.21 10x6/uL (4.00-5.40); RDW 12.7 % (11.5-14.5); WBC 20.9 10x3/uL (4.8-10.8)
[2018-05-31 05:34] LABS: ALBUMIN 2.5 g/dL (3.4-5.0); ALKALINE PHOSPHATASE 93 U/L (46-116); ALT (SGPT) 27 U/L (10-68); BILIRUBIN - TOTAL 0.14 mg/dL (0.2-1.3); CALC OSMOLALITY 283 mosm/kg (275-300); CALCIUM 8.6 mg/dL (8.5-10.1); CARBON DIOXIDE 23.2 mmol/L (21.0-32.0); CHLORIDE - SERUM 105 mmol/L (98-107); CREATININE - SERUM 0.7 mg/dL (0.6-1.3); GLUCOSE 153 mg/dL (74-106); POTASSIUM - SERUM 3.9 mmol/L (3.5-5.1); PROTEIN - SERUM 6.6 g/dL (6.4-8.2); SODIUM 141 mmol/L (136-145); UREA NITROGEN 13 mg/dL (7-18); eGFR NON AFRICAN AMERICAN 90 mL/min (90-120)
[2018-05-31 06:12] VITALS: BP 141/81
[2018-05-31 07:55] VITALS: BP 137/82
[2018-05-31 11:55] VITALS: BP 130/73
[2018-05-31 16:29] VITALS: BP 132/75
[2018-05-31 20:00] VITALS: BP 121/64
[2018-06-01] VITALS: BP 131/80
[2018-06-01 03:11] LABS: PROTEIN S - FREE 138 % (57-157); PROTEIN S - FREE 142 % (57-157); PROTEIN S - FUNCTIONAL 65 % (63-140); PROTEIN S - TOTAL 91 % (60-150); PROTEIN S - TOTAL 93 % (60-150)
[2018-06-01 04:00] VITALS: BP 130/83
[2018-06-01 05:36] LABS: BASOPHILS 0.3 % (0-2); EOSINOPHILS 0.1 % (0-7); HEMATOCRIT 40.2 % (36.0-48.0); HEMOGLOBIN 13.6 g/dL (12-16); IMMATURE GRANULOCYTES 8.3 % (0-5); LYMPHOCYTES 15.5 % (15-50); MCH 31.7 pg (26.0-34.0); MCHC 33.8 g/dL (31.0-37.0); MCV 93.7 fL (80.0-100.0); MEAN PLATELET VOLUME 10.2 fL (7.4-10.4); MONOCYTES 7.5 % (2-11); NEUTROPHILS 68.3 % (40-80); PLATELET COUNT 349 10x3/uL (130-400); RBC 4.29 10x6/uL (4.00-5.40); RDW 12.7 % (11.5-14.5); WBC 19.6 10x3/uL (4.8-10.8)
[2018-06-01 05:54] LABS: CALC OSMOLALITY 277 mosm/kg (275-300); CALCIUM 8.3 mg/dL (8.5-10.1); CARBON DIOXIDE 25.2 mmol/L (21.0-32.0); CHLORIDE - SERUM 103 mmol/L (98-107); CREATININE - SERUM 0.7 mg/dL (0.6-1.3); GLUCOSE 174 mg/dL (74-106); POTASSIUM - SERUM 3.9 mmol/L (3.5-5.1); SODIUM 137 mmol/L (136-145); UREA NITROGEN 13 mg/dL (7-18); eGFR NON AFRICAN AMERICAN 90 mL/min (90-120)
[2018-06-01 08:03] VITALS: BP 156/73
[2018-06-01 11:18] LABS: ACLA - IGG AB <9 GPL U/mL (0-14); ACLA - IGM AB 13 MPL U/mL (0-12)
[2018-06-01 11:18] LABS: ACLA - IGG AB 9 GPL U/mL (0-14); ACLA - IGM AB 15 MPL U/mL (0-12)
[2018-06-01 11:58] VITALS: BP 118/52
[2018-06-01 13:18] LABS: HEXAGONAL PHASE PHOS 0 sec (0-11); LUPUS - INTERPRETATION Comment: (()); LUPUS - THROMBIN TIME 20.8 sec (0.0-23.0); LUPUS - dRVVT 40.8 sec (0.0-47.0); PTT-LA 53.7 sec (0.0-51.9); PTT-LA INCUB MIX 64.5 sec (0.0-48.9); PTT-LA MIX 48.6 sec (0.0-48.9)
[2018-06-01 16:13] VITALS: BP 129/71
[2018-06-01 23:42] VITALS: BP 131/62
[2018-06-02 06:34] VITALS: BP 127/73
[2018-06-02 06:47] LABS: CALC OSMOLALITY 280 mosm/kg (275-300); CALCIUM 8.6 mg/dL (8.5-10.1); CARBON DIOXIDE 24.1 mmol/L (21.0-32.0); CHLORIDE - SERUM 104 mmol/L (98-107); CREATININE - SERUM 0.8 mg/dL (0.6-1.3); GLUCOSE 183 mg/dL (74-106); SODIUM 138 mmol/L (136-145); UREA NITROGEN 13 mg/dL (7-18); eGFR NON AFRICAN AMERICAN 77 mL/min (90-120)
[2018-06-02 06:52] LABS: BASOPHILS 0.5 % (0-2); EOSINOPHILS 0.1 % (0-7); HEMATOCRIT 43.2 % (36.0-48.0); HEMOGLOBIN 14.3 g/dL (12-16); IMMATURE GRANULOCYTES 12.7 % (0-5); MCH 31.4 pg (26.0-34.0); MCHC 33.1 g/dL (31.0-37.0); MCV 94.7 fL (80.0-100.0); MEAN PLATELET VOLUME 10.9 fL (7.4-10.4); MONOCYTES 7.7 % (2-11); PLATELET COUNT 329 10x3/uL (130-400); RBC 4.56 10x6/uL (4.00-5.40); RDW 12.8 % (11.5-14.5); WBC 19.4 10x3/uL (4.8-10.8)
[2018-06-02 07:30] LABS: PROTEIN C - ANTIGEN 90 % (60-150); PROTEIN C - FUNCTIONAL 116 % (73-180)
[2018-06-02 07:48] VITALS: BP 134/78
[2018-06-02 11:18] LABS: CA125 97.6 U/mL (0.0-38.1); CEA 1.5 ng/mL (0.0-4.7)
[2018-06-02 11:39] VITALS: BP 144/85
[2018-06-02] MEDS ORDERED: OMNICEF300 MG PO (12:05)
[2018-06-02] MEDS ORDERED: ELIQUIS5 MG PO (12:07)
[2018-06-02] MEDS ORDERED: MIRALAX17 GM PO (12:08)
[2018-06-02] MEDS ORDERED: PROTONIX40 MG PO (12:08)
[2018-06-02] MEDS ORDERED: PULMICORT0.5 MG/21 UPD (12:08)
[2018-06-02] MEDS ORDERED: PREDNISONE20 MG PO (12:09)
[2018-06-02] MEDS ORDERED: IPRAT-ALBUT 0.5-3 ML UPD (14:03)
[2018-06-03 03:11] LABS: CA 27-29 16.1 U/mL (0.0-38.6)
[2018-06-04 12:17] LABS: FACTOR II DNA ANALYSIS Negative (())
== END 2018-06-02 17:15 | disposition home or self-care (01) | DRG 175 ==
LOC: D.ER 07:38 → D.M2 10:05 → D.EDHOLD 10:05 → D.M2 10:34
PROVIDERS: Emergency Medicine; Family Medicine; Internal Medicine Hematology & Oncology; Internal Medicine Nephrology; Internal Medicine Pulmonary Disease
DX: I26.99 Other pulmonary embolism without acute cor pulmonale (principal); J18.9 Pneumonia, unspecified organism; J44.0 Chronic obstructive pulmonary disease with (acute) lower respiratory infection; J44.1 Chronic obstructive pulmonary disease with (acute) exacerbation; F17.213 Nicotine dependence, cigarettes, with withdrawal; J98.11 Atelectasis; D68.59 Other primary thrombophilia; I08.1 Rheumatic disorders of both mitral and tricuspid valves; E53.8 Deficiency of other specified B group vitamins

== ENCOUNTER → 2018-08-24 10:44 | Outpatient (CLI) | payer MEDICAID ==
[2018-05-29 11:53] VITALS: BMI 30.6
[~2018-08-24 10:44] MED LIST changes: +ELIQUIS5 MG PO; +IPRAT-ALBUT 0.5-3 ML UPD; +LEVAQUIN250 MG PO; +MIRALAX17 GM PO; +OMNICEF300 MG PO; +PREDNISONE20 MG PO; +PROTONIX40 MG PO; +PULMICORT0.5 MG/21 UPD; +VENTOLIN HFA18 GM INH
== END | disposition home or self-care (01) ==
LOC: D.RT 10:44
DX: J44.9 Chronic obstructive pulmonary disease, unspecified (principal)

== ENCOUNTER 2018-10-20 16:48 | Inpatient (IN) | payer MEDICAID ==
[~2018-10-20] VITALS: Ht 167.6 cm; Wt 93.0 kg
[2018-10-20 17:28] VITALS: BP 136/71
[2018-10-20 18:10] LABS: BASOPHILS 0.1 % (0-2); EOSINOPHILS 0.4 % (0-7); HEMATOCRIT 41.6 % (36.0-48.0); HEMOGLOBIN 14.1 g/dL (12-16); IMMATURE GRANULOCYTES 0.4 % (0-5); LYMPHOCYTES 21.7 % (15-50); MCH 31.4 pg (26.0-34.0); MCHC 33.9 g/dL (31.0-37.0); MCV 92.7 fL (80.0-100.0); MEAN PLATELET VOLUME 9.9 fL (7.4-10.4); MONOCYTES 9.5 % (2-11); NEUTROPHILS 67.9 % (40-80); RBC 4.49 10x6/uL (4.00-5.40); RDW 13.8 % (11.5-14.5); WBC 17.9 10x3/uL (4.8-10.8)
[2018-10-20 18:15] LABS: PLATELET COUNT 213 10x3/uL (130-400)
--- NOTE | 2018-10-20 18:19 | NUR ---
PIV INSERTED TO RIGHT FOREARM. PT TOLERATED WELL. PT REPORTS PAIN IN ABDOMINAL AREA AND RATES IT 10/10. WILL ADDRESS. SEE EMAR. PT REPORTS [place] THROUGHOUT THE DAY AND REPORTS (1) EPISODE OF EMESIS DESCRIBED "BILE". BED IS IN THE LOWEST POSITION. CALL LIGHT AND BEDSIDE TABLE ARE WITHIN REACH. WILL CONT TO MONITOR.
[2018-10-20 18:23] LABS: ALBUMIN 3.2 g/dL (3.4-5.0); ALKALINE PHOSPHATASE 101 U/L (46-116); ALT (SGPT) 28 U/L (10-68); AMYLASE - SERUM 37 U/L (25-115); BILIRUBIN - TOTAL 0.89 mg/dL (0.2-1.3); CALC OSMOLALITY 271 mosm/kg (275-300); CALCIUM 8.4 mg/dL (8.5-10.1); CARBON DIOXIDE 23.9 mmol/L (21.0-32.0); CHLORIDE - SERUM 102 mmol/L (98-107); CREATININE - SERUM 0.7 mg/dL (0.6-1.3); LIPASE 130 U/L (73-393); POTASSIUM - SERUM 3.7 mmol/L (3.5-5.1); PROTEIN - SERUM 6.9 g/dL (6.4-8.2); SODIUM 137 mmol/L (136-145); UREA NITROGEN 7 mg/dL (7-18); eGFR NON AFRICAN AMERICAN 90 mL/min (90-120)
[2018-10-20 18:29] LABS: GLUCOSE 99 mg/dL (74-106)
--- NOTE | 2018-10-20 19:00 | NUR ---
PT IN BED IN LOW FOWLERS POSITION. ALERT AND ORIENTED X4. VITAL SIGNS STABLE AND AFEBRILE. NO VISUAL CUES OF DISTRESS NOTED. DENIES ANY OTHER NEEDS AT THIS TIME. BED LOW, SIDE RAILS UP X2. CALL LIGHT IN REACH. WILL CONTINUE TO MONITOR.
[2018-10-20 21:07] VITALS: BP 129/68
--- NOTE | 2018-10-21 07:15 | NUR ---
PT RESTING IN BED, EYES OPEN. C/O PAIN, HAD MORPHINE CHIEF ACCOUNTANT 10-10. PT ALERT AND ORIENTED. NO S/S OF ACUTE DISTRESS NOTED. PT UP AD MICHELLE. PT ON ELECTROLYTE PROTOCOL. IV TO RIGHT FOREARM, SITE PATENT WITHOUT REDNESS OR SWELLING, NS INFUSING @ 75ML/HR. PT DENIES ANYTHING FURTHER AT THIS TIME. CALL LIGHT IN REACH. WILL CONTINUE TO MONITOR.
[2018-10-21 08:24] LABS: BASOPHILS 0.1 % (0-2); EOSINOPHILS 0.7 % (0-7); HEMATOCRIT 39.7 % (36.0-48.0); IMMATURE GRANULOCYTES 0.6 % (0-5); LYMPHOCYTES 20.7 % (15-50); MCH 30.8 pg (26.0-34.0); MCHC 32.7 g/dL (31.0-37.0); MCV 94.1 fL (80.0-100.0); MEAN PLATELET VOLUME 10.1 fL (7.4-10.4); MONOCYTES 10.1 % (2-11); NEUTROPHILS 67.8 % (40-80); PLATELET COUNT 195 10x3/uL (130-400); RBC 4.22 10x6/uL (4.00-5.40); RDW 13.8 % (11.5-14.5); WBC 13.5 10x3/uL (4.8-10.8)
[2018-10-21 08:38] VITALS: BP 101/51; BP 137/57
[2018-10-21 08:45] LABS: CALC OSMOLALITY 276 mosm/kg (275-300); CALCIUM 8.1 mg/dL (8.5-10.1); CARBON DIOXIDE 25.8 mmol/L (21.0-32.0); CHLORIDE - SERUM 103 mmol/L (98-107); CREATININE - SERUM 0.7 mg/dL (0.6-1.3); GLUCOSE 112 mg/dL (74-106); POTASSIUM - SERUM 3.6 mmol/L (3.5-5.1); SODIUM 139 mmol/L (136-145); UREA NITROGEN 7 mg/dL (7-18); eGFR NON AFRICAN AMERICAN 90 mL/min (90-120)
[2018-10-21 09:46] VITALS: BMI 33.1
[2018-10-21 10:11] VITALS: Ht 167.6 cm; Wt 93.0 kg
[2018-10-21 16:30] VITALS: BP 132/60
--- NOTE | 2018-10-21 18:34 | NUR ---
PT RESTING IN BED, EYES OPEN. NO C/O PAIN. NO S/S OF ACUTE DISTRESS NOTED. PT DENIES ANYTHING FURTHER AT THIS TIME. CALL LIGHT IN REACH. WILL CONTINUE TO MONITOR.
--- NOTE | 2018-10-21 19:00 | NUR ---
LIAISON OFFICER COMPLETE. PT LYING IN BED RESTING QUIETLY. DENIES NEEDS AT THIS TIME.
[2018-10-21 20:00] VITALS: BP 125/67
[2018-10-21 23:03] LABS: APPEARANCE CLEAR (CLEAR); BILIRUBIN NEGATIVE (NEGATIVE); COLOR YELLOW (YELLOW); GLUCOSE NEGATIVE (NEGATIVE); KETONE NEGATIVE (NEGATIVE); NITRITE NEGATIVE (NEGATIVE); PROTEIN NEGATIVE (NEGATIVE); SPECIFIC GRAVITY 1.015 (1.005-1.020); UROBILINOGEN NORMAL (NORMAL)
[2018-10-22 00:01] VITALS: BP 104/56
[2018-10-22 04:00] VITALS: BP 103/58
[2018-10-22 06:13] LABS: BASOPHILS 0.3 % (0-2); EOSINOPHILS 0.4 % (0-7); HEMATOCRIT 39.8 % (36.0-48.0); HEMOGLOBIN 12.8 g/dL (12-16); IMMATURE GRANULOCYTES 0.4 % (0-5); LYMPHOCYTES 19.5 % (15-50); MCH 30.5 pg (26.0-34.0); MCHC 32.2 g/dL (31.0-37.0); MEAN PLATELET VOLUME 10.5 fL (7.4-10.4); MONOCYTES 10.7 % (2-11); NEUTROPHILS 68.7 % (40-80); PLATELET COUNT 202 10x3/uL (130-400); RBC 4.19 10x6/uL (4.00-5.40); RDW 13.9 % (11.5-14.5); WBC 11.3 10x3/uL (4.8-10.8)
[2018-10-22 06:32] LABS: CALC OSMOLALITY 278 mosm/kg (275-300); CALCIUM 8.3 mg/dL (8.5-10.1); CARBON DIOXIDE 24.7 mmol/L (21.0-32.0); CHLORIDE - SERUM 106 mmol/L (98-107); CREATININE - SERUM 0.7 mg/dL (0.6-1.3); GLUCOSE 99 mg/dL (74-106); POTASSIUM - SERUM 3.8 mmol/L (3.5-5.1); SODIUM 141 mmol/L (136-145); UREA NITROGEN 6 mg/dL (7-18); eGFR NON AFRICAN AMERICAN 90 mL/min (90-120)
--- NOTE | 2018-10-22 07:15 | NUR ---
PT RESTING IN BED, EYES CLOSED. RESPIRATIONS EVEN AND UNLABORED. AROUSES TO VOICE. NO C/O PAIN, PT HAS PRACTICING UROLOGIST MORPHINE 1-10-10, CONTROLLING PAIN AT THIS TIME. NO S/S OF ACUTE DISTRESS NOTED. PT ALERT AND ORIENTED. UP AD MICHELLE. PT ON ELIQUIS. PT HAD LIQUID STOOLS OVERNIGHT. C/O MIRALAX MAKING HER NAUSEATED. IV TO RIGHT FOREARM, SITE PATENT WITHOUT REDNESS OR SWELLING, NS INFUSING @ 75ML/HR. IV TO RIGHT AC, SITE PATENT WITHOUT REDNESS OR SWELLING, SL. PT DENIES ANYTHING FURTHER AT THIS TIME. CALL LIGHT IN REACH. WILL CONTINUE TO MONITOR.
[2018-10-22 08:15] VITALS: BP 129/72
--- NOTE | 2018-10-22 13:30 | MORECARE ---
CASE MANAGEMENT DISCHARGE SUMMARY PATIENT: JANETTE MELENDEZ UNIT: [id number] ADM DATE: 10/20/18 AGE: 63 : 57 SEX: F ROOM/BED: D.[facility] AUTHOR: CLAYTON GRAY PHYSICIAN: REFERRING PHYSICIAN: KYAW VERA MD DATE OF SERVICE: 10/22/18 Discharge Plan Patient Name: JANETTE MELENDEZ Facility: [facility]:[place] : 1955 Planned Disposition: Home or Self Care Anticipated Discharge Date: Discharge Date: Expected LOS: Initial Reviewer: [email or web address] Initial Review Date: 10/20/2018 Generated: 10/22/18 2:30 pm Patient Name: JANETTE MELENDEZ Page [id number] at 1330 All edits/amendments must be made on the electronic document DICTATION DATE: 10/22/18 1330 CUTTER OPERATOR: [email or web address] 10/22/18 1330 RPT#: [id number] DC DATE: STATUS: ADM IN [facility] [address] [place] [address] END OF REPORT
--- NOTE | 2018-10-22 13:38 | MORECARE ---
CASE MANAGEMENT DISCHARGE SUMMARY PATIENT: JANETTE DURAN UNIT: [id number] ADM DATE: 10/20/18 AGE: 63 : 57 SEX: F ROOM/BED: D.2213 AUTHOR: CLAYTON GRAY PHYSICIAN: REFERRING PHYSICIAN: KYAW VERA MD DATE OF SERVICE: 10/22/18 Discharge Plan Patient Name: JANETTE DURAN Facility: [facility]:[place] : 1955 Planned Disposition: Home or Self Care Anticipated Discharge Date: Discharge Date: Expected LOS: Initial Reviewer: [email or web address] Initial Review Date: 10/20/2018 Generated: 10/22/18 2:38 pm Comments DCP- Discharge Planning Updated by [email or web address]: Flor Burden on 10/22/18 12:[address] Patient Name: JANETTE DURAN Admission Status: Urgent Accout number: [id number] Admission Date: 10-20-2018 : 1955 Admission Diagnosis: Attending: KYAW RAE Current LOS: 2 Anticipated DC Date: Planned Disposition: Home or Self Care Primary Insurance: [place] [employer] [place] Discharge Planning Comments: CM met with patient to complete initial dc planning assessment. CM educated patient on the CM role and verbal consent given by patient to complete assessment. Patient lives at home with her adult son. At discharge patient plans to return to home and feels this is a safe discharge. Her son will be the one to drive her home. She has a nebulizer at home. CM discussed availability of home health, rehab services, and medical equipment. Patient denied known discharge needs at this time. CM will continue to follow and will assist as needed with dc plans/needs. Gastrointestinal Technician: Flor Burden DCPIA - Discharge Planning Initial Assessment Updated by [email or web address]: Flor Burden on 10/22/18 1:31 pm * Is the patient Alert and Oriented? Yes * How many steps to enter\exit or inside your home? * PCP Jarrett * Pharmacy [facility] [place] * Preadmission Environment Home with Family * ADLs Independent * Equipment Cane Nebulizer Rolling Walker * List name and contact numbers for known caregivers / representatives who currently or will assist patient after discharge: Brian Duran (son)[phone] * Verbal permission to speak to the caregivers and representatives has been obtained from the patient. N/A * Community resources currently utilized None * Additional services required to return to the preadmission environment? No * Can the patient safely return to the preadmission environment? Yes * Has this patient been hospitalized within the prior 30 days at any hospital? No Last DP export: 10/22/18 12:30 p Patient Name: JANETTE DURAN Page [phone] at 1338 All edits/amendments must be made on the electronic document DICTATION DATE: 10/22/181337 WIRE MESH FILTER FABRICATOR: JAVED 10/22/188 RPT#: [id number] DC DATE: STATUS: ADM IN [facility] [address] [place] [address] END OF REPORT
[2018-10-22 13:45] VITALS: BP 100/57
[2018-10-22 16:45] VITALS: BP 126/73
--- NOTE | 2018-10-22 19:27 | NUR ---
PT RESTING IN BED EYES OPEN. NO C/O PAIN. NO S/S OF ACUTE DISTRESS NOTED. PT DENIES ANYTHING FURTHER AT THIS TIME. CALL LIGHT IN REACH. WILL CONTINUE TO MONITOR.
[2018-10-22 19:47] VITALS: BP 124/59
--- NOTE | 2018-10-22 20:35 | NUR ---
REPORT RECEIVED. EVENING ROUNDS COMPLETED. PT SITTING UP IN BED WITH EYES OPEN, RR EVEN AND UNLABORED. RIGHT FOREARM PIV INFUSING NORMAL SALINE ORDERED. INTRODUCED SELF TO PT. PT DENIES FURTHER NEEDS. NO S/S OF DISTRESS NOTED. CALL LIGHT IN REACH. WILL CTM.
[2018-10-23] VITALS: BP 97/53
--- NOTE | 2018-10-23 01:15 | NUR ---
SITTING UPRIGHT IN BED, A&OX4. STATED SHE WAS HAPPY HER DIET ADVANCED. IV TO RIGHT AC, SALINE LOCKED. FLUSHES W/O COMPLAINTS OR ISSUES. 2ND IV TO RIGHT FOREARM, W/ NORMAL SALINE RUNNING AT 100, MORPHINE RECEIVABLE MANAGER SET AT 1, 10, 10. PT REPORTS IT IS CONTROLING PAIN ADEQUATELY. REFUSED APPLYING SCDs, STATED SHE GETS UP W/O ISSUE AND THEY WOULD JUST GET IN THE WAY.DENIES NEEDS AT THIS TIME, WILL CONTINUE TO MONITOR.
[2018-10-23 04:00] VITALS: BP 113/63
[2018-10-23 07:17] LABS: BASOPHILS 0.4 % (0-2); EOSINOPHILS 1.7 % (0-7); HEMATOCRIT 39.4 % (36.0-48.0); HEMOGLOBIN 13.1 g/dL (12-16); IMMATURE GRANULOCYTES 0.4 % (0-5); LYMPHOCYTES 23.4 % (15-50); MCH 31.1 pg (26.0-34.0); MCHC 33.2 g/dL (31.0-37.0); MCV 93.6 fL (80.0-100.0); MONOCYTES 10.7 % (2-11); NEUTROPHILS 63.4 % (40-80); PLATELET COUNT 208 10x3/uL (130-400); RBC 4.21 10x6/uL (4.00-5.40); RDW 13.6 % (11.5-14.5); WBC 9.1 10x3/uL (4.8-10.8)
[2018-10-23 07:33] LABS: CALC OSMOLALITY 280 mosm/kg (275-300); CALCIUM 8.2 mg/dL (8.5-10.1); CARBON DIOXIDE 23.2 mmol/L (21.0-32.0); CHLORIDE - SERUM 107 mmol/L (98-107); CREATININE - SERUM 0.6 mg/dL (0.6-1.3); GLUCOSE 121 mg/dL (74-106); SODIUM 142 mmol/L (136-145); UREA NITROGEN 5 mg/dL (7-18); eGFR NON AFRICAN AMERICAN > 90 mL/min (90-120)
[2018-10-23 07:34] LABS: POTASSIUM - SERUM 3.2 mmol/L (3.5-5.1)
[2018-10-23 09:15] VITALS: BP 118/86
[2018-10-23] MEDS ORDERED: LEVOFLOXACIN500 MG PO (09:24)
[2018-10-23] MEDS ORDERED: FLAGYL500 MG PO (09:25)
[2018-10-23] MEDS ORDERED: ELIQUIS5 MG PO (09:25)
[2018-10-23] MEDS ORDERED: MIRALAX17 GM PO (09:26)
--- NOTE | 2018-10-23 09:55 | NUR ---
SPOKE WITH AND VERBALLY RECEIVED ORDER, OKAY FOR PATIENT TO DISCHARGE.
--- NOTE | 2018-10-23 10:04 | NUR ---
PER PROTOCOL, QUESTIONED PATIENT ABOUT FLU VACCINE AND PATIENT STATES THAT SHE DOES WANT THE FLU VACCINE BEFORE BEING DISCHARGED TODAY. PATIENT STATES THAT SHE HAD TRIED TO GET ONE FROM HER PCP, BUT HE IS ALWAYS "OUT" OF VACCINES WHEN SHE GOES TO THE DOCTOR.
--- NOTE | 2018-10-23 11:30 | NUR ---
PATIENT RECIEVED DISCHARGE INSTRUCTIONS. VERBALIZED UNDERSTANDING. IV X 2 REMOVED WITH CATH TIPS INTACT. NO COMPLAINTS OR SIGNS OF DISTRESS. AWAITING TRANSPORTATION FOR DC. CALL LIGHT WITHIN REACH.
--- NOTE | 2018-10-25 12:09 | MORECARE ---
CASE MANAGEMENT DISCHARGE SUMMARY PATIENT: JANETTE DURAN UNIT: [id number] ADM DATE: 10/20/18 AGE: 63 : 57 SEX: F ROOM/BED: D.2213 AUTHOR: ISAAC,DOC PHYSICIAN: REFERRING PHYSICIAN: KYAW VERA MD DATE OF SERVICE: 10/25/18 Discharge Plan Patient Name: JANETTE DURAN Facility: [facility]:[place] : 1955 Planned Disposition: Home or Self Care Anticipated Discharge Date: Discharge Date: 10/23/2018 Expected LOS: 0 Initial Reviewer: [email or web address] Initial Review Date: 10/20/2018 Generated: 10/25/18 1:09 pm Comments DCP- Discharge Planning Updated by [email or web address]: Flor Burden on 10/22/18 12:[address] Patient Name: JANETTE DURAN Admission Status: Urgent Accout number: [id number] Admission Date: 10-20-2018 : 1955 Admission Diagnosis: Attending: KYAW RAE Current LOS: 2 Anticipated DC Date: Planned Disposition: Home or Self Care [place]: [place] [employer] [place] Discharge Planning Comments: CM met with patient to complete initial dc planning assessment. CM educated patient on the CM role and verbal consent given by patient to complete assessment. Patient lives at home with her adult son. At discharge patient plans to return to home and feels this is a safe discharge. Her son will be the one to drive her home. She has a nebulizer at home. CM discussed availability of home health, rehab services, and medical equipment. Patient denied known discharge needs at this time. CM will continue to follow and will assist as needed with dc plans/needs. Investment Sales Assistant: Flor Burden DCPIA - Discharge Planning Initial Assessment Updated by [email or web address]: Flor Burden on 10/22/18 1:31 pm * Is the patient Alert and Oriented? Yes * How many steps to enter\exit or inside your home? * PCP Jarrett * Pharmacy [facility] * Preadmission Environment Home with Family * ADLs Independent * Equipment Cane Nebulizer Rolling Walker * List name and contact numbers for known caregivers / representatives who currently or will assist patient after discharge: Brian Duran (son)[phone] * Verbal permission to speak to the caregivers and representatives has been obtained from the patient. N/A * Community resources currently utilized None * Additional services required to return to the preadmission environment? No * Can the patient safely return to the preadmission environment? Yes * Has this patient been hospitalized within the prior 30 days at any hospital? No Last DP export: 10/22/18 12:38 p Patient Name: JANETTE DURAN Page 00303 at 1209 All edits/amendments must be made on the electronic document DICTATION DATE: 10/25/181207 TOOL CRIB SUPERVISOR: JAVED 10/25/181207 RPT#: [id number] DC DATE:10/23/18 STATUS: DIS IN [facility] [address] [place] [address] END OF REPORT
== END 2018-10-23 11:45 | disposition home or self-care (01) | DRG 392 ==
LOC: D.MS 16:48
PROVIDERS: Internal Medicine Nephrology; ADMIT Family Medicine Adult Medicine
DX: K57.32 Diverticulitis of large intestine without perforation or abscess without bleeding (principal); F17.213 Nicotine dependence, cigarettes, with withdrawal; K59.09 Other constipation; I10 Essential (primary) hypertension; Z86.711 Personal history of pulmonary embolism; Z79.01 Long term (current) use of anticoagulants; E66.9 Obesity, unspecified; Z68.33 Body mass index [BMI] 33.0-33.9, adult

== ENCOUNTER → 2018-12-15 14:24 | Outpatient (CLI) | payer MEDICAID ==
[~2018-12-15 14:24] MED LIST changes: +FLAGYL500 MG PO; +LEVOFLOXACIN500 MG PO
== END | disposition home or self-care (01) ==
LOC: D.MRI 14:24
DX: M75.111 Incomplete rotator cuff tear or rupture of right shoulder, not specified as traumatic (principal)

== ENCOUNTER → 2019-02-11 14:04 | Outpatient (CLI) | payer MEDICAID ==
[2018-10-21 10:11] VITALS: BMI 33.1
== END | disposition home or self-care (01) ==
LOC: D.US 14:04
PROVIDERS: ATTEND Family Medicine Adult Medicine
DX: T85.49XD Other mechanical complication of breast prosthesis and implant, subsequent encounter (principal)

== ENCOUNTER → 2019-02-14 17:00 | Outpatient (CLI) | payer MEDICAID ==
[2018-10-21 10:11] VITALS: BMI 33.1
== END | disposition home or self-care (01) ==
LOC: D.MAMMO 08:30
PROVIDERS: ATTEND Family Medicine Adult Medicine
DX: T85.49XD Other mechanical complication of breast prosthesis and implant, subsequent encounter (principal)

== ENCOUNTER 2019-03-08 12:51 | Outpatient (CLI) | payer MEDICAID ==
[~2019-03-08] VITALS: Ht 320 cm; Wt 88.2 kg
--- NOTE | ~2019-03-08 | HEMODYNAMI ---
PATIENT:JANETTE MELENDEZ MEDICAL RECORD: [id number] : 57 LOCATION:[place] ADMISSION DATE: 03/08/19 Generatedon:03/08/201915:00 Patient name: JANETTE MELENDEZ Patient #: [id number] SSN: : 1955 Date of study: 03/08/2019 Page: Of Hemodynamic Procedure Report Patient Data Patient Demographics Procedure consent was obtained First Name: JANETTE Gender: Female Last Name: NORA : 1955 Middle Initial: FRANCESCO Age: 63 year(s) Patient #: [id number] Race: Unknown Additional ID: [id number] Contact details Address: [facility] [place] State: [place] City: [place] Zip code: [address] Past Medical History Allergies Allergen Reaction Date Comments Reported Aspirin 04/29/2017 Penicillins 04/29/2017 Sulfa drugs 04/29/2017 NSAIDs 04/29/2017 Penicillins 03/08/2019 Aspirin 03/08/2019 NSAIDs 03/08/2019 Sulfa drugs 03/08/2019 Admission Admission Data Admission Date: 03/08/2019 Admission Time: 12:51 Admit Source: Emergency department Procedure Procedure Types Cath Procedure Diagnostic Procedure [facility] w/Coronaries Procedure Description Procedure Date Procedure Date: 03/08/2019 Procedure Start Time: 14:49 Procedure End Time: 15:00 Procedure Staff Name Function Robert Rg MD Performing Physician Reid Grissom RT Monitor Ajay Gomez RT Scrub Brenna Ibarra RN Nurse Marcellus Almanzar RN Nurse Procedure Data Cath Procedure Fluoroscopy Diagnostic fluoroscopy Total fluoroscopy Time: 1.9 time: 1.9 min min Diagnostic fluoroscopy Total fluoroscopy dose: 563 dose: 563 mGy mGy Contrast Material Contrast Material Type Amount (ml) Isovue 370 56 Entry Location Entry Primary Successful Side Size Upsize Upsize Entry Closure Lopez ccessful Closure Location (Fr) 1 (Fr) 2 (Fr) Remarks Device Remarks Radial Right 6 Fr Mechanical artery Short Compression Estimated blood loss: 10 ml Diagnostic catheters Device Type Used For End Catheter Placement DIAGNOSTIC [place] 110cm 5 Procedure Fr catheter ([id number]) Procedure Complications No complications Procedure Medications Medication Administration Route Dosage 0.9% NaCl I.V. 100 ml/hr Oxygen etCO2 Nasal cannula 2 l/min Heparin Flush Bag added to field 2 bags (1000units/500ml NS) Lidocaine 2% added to field 20 Radial Cocktail added to field 1 syringe (Verapamil 2mg/Nitro 400mcg/Heparin 1500units) Versed I.V. 2 mg Fentanyl I.V. 100 mcg Radial Cocktail I.A. 1 syringe (Verapamil 2mg/Nitro 400mcg/Heparin 1500units) Versed I.V. 1 mg Hemodynamics Rest Heart Rate: 73 (bpm) Pressure Samples Time Site Value (mmHg) Purpose Heart Use Rate(bpm) 14:48 LV 132/8,9 Snapshot 83 Snapshots Pre Cath Intra NCS Post Cath Vital Signs Time Heart Resp SPO2 etCO2 NIBP (mmHg) Rhythm Pain Sedation Rate (ipm) (%) (mmHg) Status Level (bpm) 14:38:02 70 16 99 27.7 154/80(110) NSR 0 (11) 10(A) , No pain 14:42:29 74 17 97 29.2 143/77(91) NSR 0 (11) 10(A) , No pain 14:46:37 75 18 93 10.4 116/89(111) NSR 0 (11) 10(A) , No pain 14:50:57 78 18 92 13.4 107/64(83) NSR 0 (11) 10(A) , No pain 14:55:15 86 16 94 17.9 113/66(88) NSR 0 (11) 10(A) , No pain 14:59:14 0 No Cuff NSR 0 (11) 10(A) , No pain Medications Time Medication Route Dose Verified Delivered Reason Notes Effectiveness by by 14:36:12 0.9% NaCl I.V. 100 Marcellus Marcellus Per ml/hr Jenelle Almanzar physician RN RN 14:36:21 Oxygen etCO2 2 l/min Marcellus Marcellus for low 02 Nasal Jenelle Almanzar sats cannula RN RN 14:36:31 Heparin Flush added 2 bags Marcellus Marcellus used for Bag to Jenelle Almanzar procedure (1000units/500ml field RN RN NS) 14:36:41 Lidocaine 2% added 20ml Marcellus Marcellus for local to vial Lorigan Lorigan anesthetic field RN RN 14:36:55 Radial Cocktail added 1 Marcellus Marcellus used for (Verapamil to syringe Lorigan Lorigan procedure 2mg/Nitro field RN RN 400mcg/Heparin 1500units) 14:46:39 Versed I.V. 2 mg Marcellus Marcellus for sedation Jenelle Almanzar RN, RN 14:46:47 Fentanyl I.V. 100 mcg Marcellus Marcellus for sedation Jenelle Almanzar RN RN 14:47:41 Radial Cocktail I.A. 1 Marcellus Robert for (Verapamil syringe Lorigan Ifrah vasodilation 2mg/Nitro TROY ESPINOZA 400mcg/Heparin 1500units) 14:48:48 Versed I.V. 1 mg Marcellus Marcellus for sedation Jenelle Almanzar RN treatment technician Log Time Note 14:17:43 Informed consent obtained and on chart 14:17:48 Admit Source: Emergency department 14:18:10 Diagnostic Cath status Emergency 14:18:13 Brenna Ibarra RN sent for patient. Start room use. 14:24:29 Time tracking: Regular hours (M-F 7:00 - 5:00) 14:24:48 Plan of Care:Hemodynamics will remain stable., Cardiac rhythm will remain stable., Comfort level will be maintained., Respiratory function will remain adequate., Patient/ family verbilizes understanding of procedure., Procedure tolerated without complication., Recovers from procedure without complications.. 14:24:57 Patient received from ED to [facility] 2 Alert and oriented. Tansferred to table in Supine position. 14:24:58 Warm blankets applied, and xiang hugger turned on for patient comfort. 14:24:58 Correct patient and procedure confirmed by team. 14:24:59 ECG and BP/O2 sat monitors applied to patient. 14:36:12 0.9% NaCl 100 ml/hr I.V. was administered by Marcellus Almanzar RN; Per physician; 14:36:21 Oxygen 2 l/min etCO2 Nasal cannula was administered by Marcellus Almanzar RN; for low 02 sats; 14:36:31 Heparin Flush Bag (1000units/500ml NS) 2 bags added to field was administered by Marcellus Almanzar RN; used for procedure; 14:36:41 Lidocaine 2% 20ml vial added to field was administered by Marcellus Almanzar RN; for local anesthetic; 14:36:45 Vital chart was started 14:36:46 Baseline sample Acquired. 14:36:55 Radial Cocktail (Verapamil 2mg/Nitro 400mcg/Heparin 1500units) 1 syringe added to field was administered by Marcellus Almanzar RN; used for procedure; 14:36:57 Rhythm: sinus rhythm 14:36:59 Full Disclosure recording started 14:37:07 H&P Date Dictated: 03/08/2019 ER History on chart.. 14:37:09 Pre-procedure instructions explained to patient. 14:37:14 Pre-op teaching completed and patient verbalized understanding. 14:37:23 Family in waiting room. 14:37:42 Patient allergic to Penicillins 14:37:53 Patient allergic to Aspirin 14:37:59 Patient allergic to NSAIDs 14:38:03 Patient allergic to Sulfa drugs 14:38:10 Is the patient allergic to Iodine/contrast media? No. 14:38:22 Is patient on blood thinner?Yes 14:38:26 ACC The patient was administered the following blood thiners within the last 24 hours: ACCPlavix 14:38:38 LOADED AT 1330 14:39:38 Patient diabetic? No. 14:40:09 Patient not . Patient is over age 55. 14:40:24 ----Pre-sedation anethsthesia assessment.---- 14:40:27 Previous problem with sedation/anesthesia? No ? 14:40:29 Snore? Yes 14:40:31 Sleep apnea? No 14:40:32 Deviated septum? No 14:40:33 Opens mouth fully? Yes 14:40:34 Sticks out tongue? Yes 14:41:00 Airway obstruction? Yes EMPHYSEMA 14:41:08 Dentures? Yes OUT 14:42:09 Pre procedure: right dorsailis pedis pulse 2+ Normal; easily identifiable; not easily obliterated 14:45:19 IV patent on arrival in left forearm with 0.9% NaCl at [facility]. 14:45:27 Right Radial & Right Groin area was prepped with chlora-prep and draped in sterile fashion 14:45:29 Alarms reviewed by R. N. 14:45:29 Sharps counted by scrub and verified by Vin 14:45:31 Physician arrived 14:45:32 --------ALL STOP TIME OUT------ 14:45:32 Final Timeout: patient, procedure, and site verified with staff and physician. All members of the team are in agreement. 14:45:35 Right Radial & Right Groin site verified by team. 14:45:39 Fire Safety Assessment: A--An alcohol-based skin anteseptic being used preoperatively., C--Open oxygen or nitrous oxide is being used., D--An ESU, laser, or fiber-optic light is being used. 14:45:44 Physical assessment completed. ASA score P 2 - A patient with mild systemic disease as per Robert Rg MD. 14:45:55 1) 90+ Normal kidney functon but urine findings or structural abnormalities or genetic trait point to kidney disease. 14:46:36 Maximum allowable contrast does (3.7 X eGFR X 0.75)249.75 ml. 14:46:39 Versed 2 mg I.V. was administered by Marcellus Almanzar RN; for sedation; 14:46:41 Sedation plan: IV Moderate Sedation Medication:Versed, Fentanyl 14:46:47 Fentanyl 100 mcg I.V. was administered by Marcellus Almanzra RN; for sedation; 14:47:13 Use device set Radial Dx or PCI 14:47:15 ACIST Syringe (58755) opened to sterile field. 14:47:15 Medline Cath Pack ([id number]) opened to sterile field. 14:47:16 Bag Decanter (2001S) opened to sterile field. 14:47:17 ACIST Hand Control (01233) opened to sterile field. 14:47:17 ACIST Manifold (47176) opened to sterile field. 14:47:18 Tegaderm 4 x 4 (1626W) opened to sterile field. 14:47:19 MBrace Wrist Support (103431949) opened to sterile field. 14:47:24 SHEATH 6FR Slender (801060) opened to sterile field. 14:47:25 EMERALD Guide Wire (022-635) opened to sterile field. 14:47:36 Procedure started. 14:47:41 Radial Cocktail (Verapamil 2mg/Nitro 400mcg/Heparin 1500units) 1 syringe I.A. was administered by Robert Rg MD; for vasodilation; 14:48:48 Versed 1 mg I.V. was administered by Marcellus Almanzar RN; for sedation; 14:48:59 Bleeding risk 1.6%. 14:49:21 Local anesthetic to right radial artery with Lidocaine 2% by Robert Rg MD.INITIAL ACCESS ONLY 14:49:44 Sheath removed intact; hemostasis achieved with Mechanical Compression to the Right Radial artery. 14:49:44 A 6 Fr Short sheath was inserted into the Right Radial artery 14:49:58 A DIAGNOSTIC [place] 110cm 5 Fr catheter (057141) was advanced over the wire and used for Procedure. 14:50:01 LV hemodynamics recorded. 14:50:03 LV gram done using MUNGUIA 14:50:10 EF : 55 % 14:50:15 RCA angiography performed. 14:50:48 LCA angiography performed. 14:53:38 Catheter removed. 14:54:14 TR BAND Standard ([id number]) opened to sterile field. 14:57:37 Procedure ended.(Physican Out) 14:58:44 Fluoroscopy time 01.90 minutes. 14:58:48 Fluoroscopy dose: 563 mGy 14:58:48 Flurop Dose total: 563 14:58:59 Contrast amount:Isovue 370 56ml. 14:59:01 Sharps counted by scrub and verified by R.N. 14:59:03 Insertion/operative site no bleeding no hematoma. 14:59:06 TR band inflated with 12cc of air. 14:59:08 Post Procedure Pulses reassessed and unchanged 14:59:12 Post-procedure physical assessment completed. ASA score P 2 - A patient with mild systemic disease as per Robert Rg MD. 14:59:14 Post procedure rhythm: unchanged. 14:59:17 Estimated blood loss: 10 ml 14:59:18 Post procedure instruction explained to patient.Patient verbalizes understanding. 14:59:18 Patient needs reinforcement of post procedure teaching. 14:59:25 Procedure and supply charges have been captured, reviewed, submitted and are correct. 14:59:27 Procedure Complication : No complications 14:59:29 Vital chart was stopped 15:00:03 See physician's report for complete and final results. 15:00:04 Report given to Pre/Post Procedure Room. 15:00:06 Patient transfered to Pre/Post Procedure Room with Stretcher. 15:00:08 Procedure ended. 15:00:08 Full Disclosure recording stopped 15:00:15 End room use (Document Last) Device Usage Item Name Manufacture Quantity Catalog Hospital Part Current Minimal Lot# / Number Charge Number Stock Stock Serial# Code ACIST Acist 1 78890 [id number] 668969 849352 20 Syringe Medical (16272) Systems Inc Medline Medline 1 [id number] 799987 14432 700466 5 Cath Pack ([id number]) Bag Microtek 1 2001S 524162 68501 219928 5 Decanter Medical Inc. (2001S) ACIST Hand Acist 1 56313 567732 530730 269232 5 Control Medical (32177) Systems Inc ACIST Acist 1 74274 571021 322399 213618 5 Manifold Medical (14570) Systems Inc Tegaderm 4 3M 1 1626W 004573 878011 534207 5 x 4 (1626W) MBrace Advanced 1 140-0250-00 404403 89665 126816 5 Wrist Vascular Support Dynamics ([id number]) SHEATH 6FR Terumo 1 [id number] 759658 670988 813176 5 Slender (80-1060) EMERALD Cardinal 1 502-591 095313 899282 419870 5 Guide Wire Health (405-738) DIAGNOSTIC Terumo 1 40-4161 033066 606090 180228 5 Bedford 110cm 5 Fr catheter (661473) TR BAND Terumo 1 [id number] 074052 632701 289470 40 Standard ([id number]) Signature Audit [place] Stage Time Signature Unsigned Intra-Procedure 03/08/2019 Reid Grissom 3:00:29 PM RT(R) Signatures Monitor : Reid Grissom RT Signature : Date : Time : [place] [id number] [place] [address]
[2019-03-08 12:55] VITALS: Ht 320 cm; Wt 88.2 kg
[2019-03-08 14:15] LABS: EOSINOPHILS 1.3 % (0-7); HEMATOCRIT 42.2 % (36.0-48.0); HEMOGLOBIN 14.6 g/dL (12-16); IMMATURE GRANULOCYTES 0.3 % (0-5); LYMPHOCYTES 43.8 % (15-50); MCH 31.4 pg (26.0-34.0); MCHC 34.6 g/dL (31.0-37.0); MCV 90.8 fL (80.0-100.0); MEAN PLATELET VOLUME 10.6 fL (7.4-10.4); MONOCYTES 9.5 % (2-11); NEUTROPHILS 44.1 % (40-80); PLATELET COUNT 226 10x3/uL (130-400); RBC 4.65 10x6/uL (4.00-5.40); RDW 13.1 % (11.5-14.5); WBC 7.2 10x3/uL (4.8-10.8)
[2019-03-08 14:18] LABS: APTT 29.4 SECONDS (22.8-39.4); INR 1.17 (0.85-1.17); PROTIME 14.4 SECONDS (11.6-15.0)
[2019-03-08 14:25] VITALS: BP 154/95
[2019-03-08 14:27] LABS: ALBUMIN 3.4 g/dL (3.4-5.0); ALKALINE PHOSPHATASE 107 U/L (46-116); ALT (SGPT) 27 U/L (10-68); BILIRUBIN - TOTAL 0.49 mg/dL (0.2-1.3); CALC OSMOLALITY 277 mosm/kg (275-300); CALCIUM 8.6 mg/dL (8.5-10.1); CARBON DIOXIDE 25.3 mmol/L (21.0-32.0); CHLORIDE - SERUM 105 mmol/L (98-107); CREATININE - SERUM 0.7 mg/dL (0.6-1.3); GLUCOSE 105 mg/dL (74-106); POTASSIUM - SERUM 3.6 mmol/L (3.5-5.1); PROTEIN - SERUM 6.9 g/dL (6.4-8.2); SODIUM 140 mmol/L (136-145); UREA NITROGEN 9 mg/dL (7-18); eGFR NON AFRICAN AMERICAN 90 mL/min (90-120)
[2019-03-08 14:32] LABS: CKMB 1.7 U/L (0.0-3.6); CREATINE KINASE 107 UL (21-215); MAGNESIUM - SERUM 2.1 mg/dL (1.8-2.4); TROPONIN-I 0.024 ng/mL (0.000-0.060)
--- NOTE | 2019-03-08 15:05 | NUR ---
PT RECEIVED VIA STRETCHER FROM HELPER MAINTENANCE CLEANING FOR RECOVERY. PT DROWSY, VERBALLY AROUSABLE. PT DENIES PAIN OR DISCOMFORT. TR BAND AND IMMOBILIZER TO R WRIST, DRESSING CDI NO BLEEDING OR HEMATOMA NOTED. ARM PINK AND WARM, CAP REFILL BRISK. HR NSR RATE 76, BP 124/93, O2 PLACED AT 2L/NC, SAT 94. IV PATENT INFUSING VIA L HAND, PER ORDERS. PT INSTRUCTED TO RESTRICT USE IN R ARM, SHE VERBALIZED UNDERSTANDING. DAUGHTER AT BEDSIDE, CALL LIGHT IN REACH
--- NOTE | 2019-03-08 15:32 | NUR ---
PT SLEEPING COMFORTABLY, VSS. TR BAND IN PLACE, DRESSING CDI NO BLEEDING OR SWELLING NOTED. CALL LIGHT IN REACH
--- NOTE | 2019-03-08 16:00 | NUR ---
PT AWAKE BUT STILL DROWSY. O2 REMOVED. 3CC AIR REMOVED FROM TR BAND W/O BLEEDING OR SWELLING. PT DENIES PAIN OR DISCOMFORT. DAUGHTER AT BEDSIDE.
--- NOTE | 2019-03-08 16:30 | NUR ---
PT RESTING COMFORTABLY W EYES CLOSED. TR BAND IN PLACE, 3 ADD'L CC AIR REMOVED, NO BLEEDING OR SWELLING NOTED. SANDWICH SERVED, HOB ELEVATED SLIGHTLY. PT DENIES NEEDS. VSS. CALL LIGHT IN REACH
--- NOTE | 2019-03-08 16:50 | NUR ---
DISCHARGE INSTRUCTIONS REVIEWED W PT AND DAUGHTER, BOTH VERVALIZED UNDERSTANDING. IV REMOVED W CATH INTACT, MONITORS REMOVED. PT UP TO DRESS FOR DISCHARGE.
--- NOTE | 2019-03-08 16:55 | NUR ---
PT AMBULATED TO BR, VOIDING W/O DIFFICULITY.
--- NOTE | 2019-03-08 17:00 | NUR ---
TR BAND AND REMAINING AIR REMOVED W NO BLEEDING OR SWELLING NOTED. 2X2 AND TEGADERM DRESSING APPLIED. 1705 PT DISCHARGED VIA WC TO PRIVATE VEHICLE WITH ALL BELONGINGS.
--- NOTE | 2019-03-11 14:33 | OP ---
PATIENT NAME: JANETTE MELENDEZ MEDICAL RECORD: [id number] :57 LOCATION:D.CAT ADMISSION DATE: SURGEON: TREVOR SLATER MD DATE OF OPERATION: 03/08/2019 PROCEDURE: Left heart catheterization, selective coronary angiography, right radial approach. CATHETERS: Radial sheath, [place] catheter. The procedure was well tolerated. The patient returned to the kong. Sheath removed. TR band was placed. FINDINGS: Left ventriculography in 30-degree MUNGUIA view: Normal wall motion, normal systolic function. CORONARY ANATOMY: LEFT MAIN: Left main is free of disease. LAD: Free of disease in the diagonal system. CIRCUMFLEX: Free of disease in the marginal system. RIGHT CORONARY ARTERY: Somewhat of a codominant system, free of disease. IMPRESSION: Normal LV systolic function. Normal coronary anatomy. TRANSINT:[id number] Voice Confirmation ID: [id number] DOCUMENT ID: [id number] TREVOR SLATER MD at 1433 CC: [id number] DICTATION DATE: 03/08/19 1458 FORENSIC MANAGER: 03/08/19 1506 DEP CLI 03/08/19 [place] [place] [address]
--- NOTE | 2019-03-11 14:33 | HP ---
PATIENT: JANETTE MELENDEZ MEDICAL RECORD: [id number] ACCOUNT: [id number] LOCATION:[place] : 57 ADMISSION DATE: 03/08/19 PCP: KYAW VERA MD HISTORY AND PHYSICAL EXAMINATION HISTORY OF PRESENT ILLNESS: A 63-year-old lady with no known history of coronary artery disease; has a history of obstructive pulmonary disease; hypertension; and previous history of pulmonary embolus, on Eliquis. She was initially seen in convenient care clinic and found to have elevated troponin with chest pain and ECG changes. She was referred to the ER here. She will be brought to the carpenter labor supervisor for further evaluation. Pain free at this point. PAST MEDICAL HISTORY: Includes; 1. History of obstructive pulmonary disease. 2. Diverticulitis. 3. Pulmonary embolus described above. 4. Gastroesophageal reflux disease. ALLERGIES: NONSTEROIDALS, PENICILLIN, SULFA, AND ASPIRIN. MEDICATIONS: Typically include albuterol two puffs q. 4, DuoNeb 3 mL q.i.d., Eliquis 5 b.i.d., metoprolol 25 b.i.d., Protonix 40 daily, and MiraLax 17 grams daily. SOCIAL HISTORY: Quit smoking back in the fall of 2017. Nondrinker. He is able to take care of ADLs. REVIEW OF SYSTEMS: The patient reports easy bruising but reports no swollen glands. The patient reports no fever, no night sweats, no significant weight gain, no significant weight loss. No significant exercise tolerance. The patient reports no dry eyes, no irritation, no vision change. Patient reports no difficulty hearing and no ear pain. Patient reports no frequent nose bleeds or nose and sinus problems. Patient reports on arm pain on exertion. No shortness of breath while lying down. No history of heart murmur. Patient reports no cough, no wheezing or coughing up blood. Patient reports no abdominal pain, no vomiting. Normal appetite. No diarrhea and not vomiting blood. No nausea and no constipation. Patient reports no incontinence. No difficulty urinating. No hematuria. No increased frequency. Patient reports no muscle aches. No weakness, no arthralgias, no back pain. No swelling of the extremities. Patient reports no abnormal mole, no jaundice, no rashes. Reports no loss of consciousness. No weakness and no numbness. No seizures, dizziness, or headaches. The patient reports no depression, no sleep disturbance, feeling safe in a relationship and no alcohol abuse. Patient reports on fatigue. Reports no runny nose or sinus pressure. No itching, no hives, and no frequent sneezing. PHYSICAL EXAMINATION: VITAL SIGNS: Blood pressure 154/95. Pulse 70 and regular. Occasional extrasystole. HEENT: Normocephalic and atraumatic. NECK: No bruits are noted. HEART: Regular. Occasional extrasystole. II/ systolic ejection murmur. LUNGS: Good air excursion currently. ABDOMEN: Soft and nontender. EXTREMITIES: Pulses are well preserved, 2+. There is no edema. HISTORY AND PHYSICAL [id number] JANETTE MELENDEZ NEUROLOGIC: Grossly intact. DIAGNOSTIC DATA: ECG shows nonspecific ST-T changes inferolaterally. IMPRESSION: NSTEMI. PLAN: Plan for angiography and intervention based on above. TRANSINT:[id number] Voice Confirmation ID: [id number] DOCUMENT ID: [id number] TREVOR SLATER MD at 1433 CC: [id number] DICTATION DATE: 03/08/19 1500 MATLAB DEVELOPER: 03/08/19 1528 DEP CLI 03/08/19 [facility] [address] [place] [address]
--- NOTE | 2019-03-11 14:33 | DS ---
PATIENT:JANETTE MELENDEZ :57 MEDICAL RECORD: [id number] DISCHARGE SUMMARY ADMISSION DATE: 03/08/19 DISCHARGE DATE: 03/08/19 A 63-year-old female who was initially seen at pending [facility] with chest pain, was told she had elevated troponin, was referred here to the ER, was brought to the tree tapping laborer on an urgent basis, was found to have no obstructive coronary artery disease and normal LV function. Reading to be a false positive. [facility] Discharged home in good condition. TRANSINT:[id number] Voice Confirmation ID: [id number] DOCUMENT ID: [id number] TREVOR SLATER MD at 1433 CC: [id number] DICTATION DATE: 03/08/19 1502 NOXIOUS WEEDS AND PEST INSPECTOR: 03/09/19 0008 DEP CLI 03/08/19 [place] [address] [place] [address]
== END 2019-03-08 17:05 | disposition home or self-care (01) ==
LOC: D.ER 12:51 → D.CATH 12:51 → EDSTATUS 13:43 → D.CATH 17:05
PROVIDERS: Family Medicine; ATTEND Internal Medicine Interventional Cardiology
DX: I20.9 Angina pectoris, unspecified (principal); Z01.812 Encounter for preprocedural laboratory examination

== ENCOUNTER 2019-10-03 15:27 | Emergency (ER) | payer MEDICAID ==
[~2019-10-03] VITALS: Ht 320 cm; Wt 81.1 kg
[2019-10-03 15:50] VITALS: Ht 320 cm; Wt 81.1 kg
[2019-10-03 16:19] LABS: BASOPHILS 0.5 % (0-2); EOSINOPHILS 0.6 % (0-7); HEMATOCRIT 44.1 % (36.0-48.0); HEMOGLOBIN 15.1 g/dL (12-16); IMMATURE GRANULOCYTES 0.3 % (0-5); LYMPHOCYTES 39.4 % (15-50); MCH 30.8 pg (26.0-34.0); MCHC 34.2 g/dL (31.0-37.0); MCV 89.8 fL (80.0-100.0); MEAN PLATELET VOLUME 10.1 fL (7.4-10.4); MONOCYTES 9.1 % (2-11); NEUTROPHILS 50.1 % (40-80); PLATELET COUNT 246 10x3/uL (130-400); RBC 4.91 10x6/uL (4.00-5.40); RDW 13.1 % (11.5-14.5); WBC 10.2 10x3/uL (4.8-10.8)
[2019-10-03 16:36] LABS: APTT 33.2 SECONDS (22.8-39.4); INR 0.98 (0.85-1.17); PROTIME 12.9 SECONDS (11.6-15.0)
[2019-10-03 16:37] LABS: D-DIMER-QUANTITATIVE 0.28 ug/mLFEU (0.20-0.54)
[2019-10-03 16:40] LABS: CALC OSMOLALITY 283 mosm/kg (275-300); CALCIUM 8.7 mg/dL (8.5-10.1); CARBON DIOXIDE 25.5 mmol/L (21.0-32.0); CHLORIDE - SERUM 105 mmol/L (98-107); CREATININE - SERUM 0.8 mg/dL (0.6-1.3); GLUCOSE 126 mg/dL (74-106); POTASSIUM - SERUM 3.2 mmol/L (3.5-5.1); SODIUM 142 mmol/L (136-145); UREA NITROGEN 9 mg/dL (7-18); eGFR NON AFRICAN AMERICAN 77 mL/min (90-120)
[2019-10-03 16:48] LABS: ALBUMIN 3.3 g/dL (3.4-5.0); ALKALINE PHOSPHATASE 99 U/L (30-120); ALT (SGPT) 19 U/L (10-68); BILIRUBIN - TOTAL 0.47 mg/dL (0.2-1.3); CREATINE KINASE 79 UL (21-215); PROTEIN - SERUM 7.2 g/dL (6.4-8.2)
[2019-10-03 16:49] LABS: TROPONIN-I < 0.017 ng/mL (0.000-0.060)
[2019-10-03 18:26] VITALS: BP 147/84
== END 2019-10-03 18:28 | disposition home or self-care (01) ==
LOC: D.ER 15:27
PROVIDERS: Family Medicine
DX: R06.00 Dyspnea, unspecified (principal); R07.9 Chest pain, unspecified; E87.6 Hypokalemia; I10 Essential (primary) hypertension; J44.9 Chronic obstructive pulmonary disease, unspecified; K21.9 Gastro-esophageal reflux disease without esophagitis; I25.2 Old myocardial infarction

== ENCOUNTER 2020-02-27 08:57 | Emergency (ER) | payer MEDICAID ==
[~2020-02-27] VITALS: Ht 320 cm; Wt 80.9 kg
[2020-02-27 09:08] VITALS: Ht 320 cm; Wt 80.9 kg
[2020-02-27 09:33] LABS: HEMATOCRIT 47.6 % (36.0-48.0); HEMOGLOBIN 15.8 g/dL (12-16); LYMPHOCYTES 38.8 % (15-50); MCH 30.1 pg (26.0-34.0); MCHC 33.2 g/dL (31.0-37.0); MCV 90.7 fL (80.0-100.0); NEUTROPHILS 47.9 % (40-80); PLATELET COUNT 235 10x3/uL (130-400); RBC 5.25 10x6/uL (4.00-5.40); RDW 12.6 % (11.5-14.5); WBC 8.3 10x3/uL (4.8-10.8)
[2020-02-27 09:39] LABS: CALC OSMOLALITY 273 mosm/kg (275-300); CALCIUM 9.2 mg/dL (8.5-10.1); CARBON DIOXIDE 27.6 mmol/L (21.0-32.0); CHLORIDE - SERUM 104 mmol/L (98-107); CREATININE - SERUM 0.7 mg/dL (0.6-1.3); GLUCOSE 104 mg/dL (74-106); POTASSIUM - SERUM 4.2 mmol/L (3.5-5.1); SODIUM 138 mmol/L (136-145); UREA NITROGEN 8 mg/dL (7-18); eGFR NON AFRICAN AMERICAN 90 mL/min (90-120)
[2020-02-27 09:57] LABS: ALBUMIN 3.6 g/dL (3.4-5.0); ALKALINE PHOSPHATASE 118 U/L (30-120); ALT (SGPT) 20 U/L (10-68); CREATINE KINASE 75 UL (21-215); MAGNESIUM - SERUM 2.2 mg/dL (1.8-2.4); PRO BNP 124 pg/mL (0-125); PROTEIN - SERUM 7.5 g/dL (6.4-8.2); TROPONIN-I < 0.017 ng/mL (0.000-0.060)
[2020-02-27 10:08] LABS: APTT 30.4 SECONDS (22.8-39.4); INR 1.04 (0.85-1.17); PROTIME 13.6 SECONDS (11.6-15.0)
[2020-02-27 10:09] LABS: D-DIMER-QUANTITATIVE < 0.27 ug/mLFEU (0.20-0.54)
[2020-02-27] MEDS ORDERED: HYDROCODON-ACE1 EAC7 PO (11:14)
[2020-02-27 12:31] VITALS: BP 135/84
== END 2020-02-27 12:31 | disposition home or self-care (01) ==
LOC: D.ER 08:57
PROVIDERS: Family Medicine
DX: M94.0 Chondrocostal junction syndrome [Tietze] (principal); R09.1 Pleurisy; J44.9 Chronic obstructive pulmonary disease, unspecified

== ENCOUNTER → 2020-04-17 06:34 | Outpatient (CLI) | payer MEDICAID ==
[~2020-04-17 06:34] MED LIST changes: +HYDROCODON-ACE1 EAC7 PO
== END | disposition home or self-care (01) ==
LOC: D.LAB 06:34
PROVIDERS: ATTEND Internal Medicine Pulmonary Disease
DX: Z11.59 Encounter for screening for other viral diseases (principal)

== ENCOUNTER → 2020-04-29 13:50 | Outpatient (CLI) | payer MEDICAID | END | disposition home or self-care (01) | LOC: D.LAB 13:50 | PROVIDERS: ATTEND Internal Medicine Pulmonary Disease | DX: J44.9 Chronic obstructive pulmonary disease, unspecified (principal) ==

== ENCOUNTER → 2020-05-01 14:08 | Outpatient (CLI) | payer MEDICAID | END | disposition home or self-care (01) | LOC: D.RT 04-18 15:00 | PROVIDERS: ATTEND Internal Medicine Pulmonary Disease | DX: J44.9 Chronic obstructive pulmonary disease, unspecified (principal) ==

== ENCOUNTER 2020-06-25 17:00 | Outpatient (CLI) | payer MEDICAID | END 2020-06-25 23:59 | disposition home or self-care (01) | LOC: D.MAMMO 17:00 | PROVIDERS: ATTEND Nurse Practitioner Family | DX: N64.4 Mastodynia (principal) ==

== ENCOUNTER 2020-10-31 09:47 | Inpatient (IN) | payer MEDICAID ==
[~2020-10-31] VITALS: Ht 165.1 cm; Wt 79.4 kg
[2020-10-31 10:44] LABS: CALC OSMOLALITY 269 mosm/kg (275-300); CALCIUM 9.2 mg/dL (8.5-10.1); CARBON DIOXIDE 26.2 mmol/L (21.0-32.0); CHLORIDE - SERUM 103 mmol/L (98-107); CREATININE - SERUM 0.7 mg/dL (0.6-1.3); GLUCOSE 100 mg/dL (74-106); POTASSIUM - SERUM 3.6 mmol/L (3.5-5.1); SODIUM 135 mmol/L (136-145); UREA NITROGEN 13 mg/dL (7-18); eGFR NON AFRICAN AMERICAN 89 mL/min (90-120)
[2020-10-31 10:46] LABS: APTT 28.3 SECONDS (22.8-39.4); INR 1.24 (0.85-1.17); PROTIME 14.5 SECONDS (11.6-15.0)
[2020-10-31 10:53] LABS: ALBUMIN 3.4 g/dL (3.4-5.0); ALKALINE PHOSPHATASE 81 U/L (30-120); ALT (SGPT) 21 U/L (10-68); AMYLASE - SERUM 39 U/L (25-115); BASOPHILS 0.4 % (0-2); EOSINOPHILS 0.7 % (0-7); HEMATOCRIT 43.4 % (36.0-48.0); HEMOGLOBIN 14.8 g/dL (12-16); IMMATURE GRANULOCYTES 0.4 % (0-5); LIPASE 124 U/L (73-393); LYMPHOCYTE ABS# 3.69 10x3/uL (1.18-3.74); LYMPHOCYTES 29.2 % (15-50); MCH 32.2 pg (26.0-34.0); MCHC 34.1 g/dL (31.0-37.0); MCV 94.6 fL (80.0-100.0); MEAN PLATELET VOLUME 9.6 fL (7.4-10.4); MONOCYTES 9.2 % (2-11); NEUTROPHIL ABS# 7.58 10x3/uL (1.56-6.13); NEUTROPHILS 60.1 % (40-80); PLATELET COUNT 221 10x3/uL (130-400); RBC 4.59 10x6/uL (4.00-5.40); RDW 12.9 % (11.5-14.5); TROPONIN-I < 0.017 ng/mL (0.000-0.060); WBC 12.6 10x3/uL (4.8-10.8)
[2020-10-31 14:15] LABS: BILIRUBIN NEGATIVE (NEGATIVE); KETONE NEGATIVE (NEGATIVE); NITRITE NEGATIVE (NEGATIVE); UROBILINOGEN NORMAL mg/dL (< 2)
[2020-10-31 19:57] VITALS: BP 137/79
[2020-10-31] MEDS ORDERED: ULTRAM50 MG PO (20:00)
--- NOTE | 2020-10-31 20:35 | NUR ---
PT A/O X4 RR EVEN AND UNLABORED VSS. PT COMPLAINS OF PAIN 03/16 IN ABD. PRN PAIN MEDICATION GIVEN AT THIS TIME. BED LOW CALL LIGHT WITHIN REACH. PT DENIES ANY FURTHER NEEDS AT THIS TIME. WILL CONTINUE TO MONITOR.
[2020-11-01 00:47] VITALS: BP 147/86
[2020-11-01 01:31] VITALS: BP 142/80
[2020-11-01 05:33] VITALS: BP 153/69
[2020-11-01 07:53] LABS: HEMATOCRIT 40.4 % (36.0-48.0); HEMOGLOBIN 13.7 g/dL (12-16); MCH 32.3 pg (26.0-34.0); MCHC 33.9 g/dL (31.0-37.0); MCV 95.3 fL (80.0-100.0); MEAN PLATELET VOLUME 9.6 fL (7.4-10.4); NEUTROPHILS 66.5 % (40-80); PLATELET COUNT 194 10x3/uL (130-400); RBC 4.24 10x6/uL (4.00-5.40); RDW 12.6 % (11.5-14.5)
[2020-11-01 07:56] LABS: ALBUMIN 3.1 g/dL (3.4-5.0); ALKALINE PHOSPHATASE 73 U/L (30-120); ALT (SGPT) 15 U/L (10-68); BILIRUBIN - TOTAL 0.91 mg/dL (0.2-1.3); CALC OSMOLALITY 281 mosm/kg (275-300); CALCIUM 8.1 mg/dL (8.5-10.1); CARBON DIOXIDE 23.4 mmol/L (21.0-32.0); CHLORIDE - SERUM 108 mmol/L (98-107); CREATININE - SERUM 0.6 mg/dL (0.6-1.3); GLUCOSE 92 mg/dL (74-106); MAGNESIUM - SERUM 1.8 mg/dL (1.8-2.4); POTASSIUM - SERUM 3.4 mmol/L (3.5-5.1); PROTEIN - SERUM 5.9 g/dL (6.4-8.2); SODIUM 142 mmol/L (136-145); UREA NITROGEN 9 mg/dL (7-18); eGFR NON AFRICAN AMERICAN > 90 mL/min (90-120)
[2020-11-01 10:49] VITALS: BP 146/81
--- NOTE | 2020-11-01 10:49 | NUR ---
PATIENT SITTING UP IN BED, RESTING QUIETLY. AROUSES EASILY TO VERBAL STIMULI. PATIENT ORIENTED X 4. IV SITES TO RIGHT ARM DRY AND INTACT WITH FLUIDS AND PROTONIX RUNNING. RESPIRATIONS EVEN AND UNLABORED. PATIENT GIVEN PRN PAIN MEDS EARLIER WITH GOOD RELIEF AND HAS BEEN ABLE TO REST. PATIENT ATE BREAKFAST ADN STATED IT REALLY BOTHERED HER BELLY. DR. FINE CALLED AND STATES SHE WILL ROUND ON PATIENT LATER. NO DISTRESS NOTED. CALL LIRA IN REACH, SIDE RAILS UP X 2, BED IN LOW POSITION.
[2020-11-01 13:38] VITALS: BMI 29.0
--- NOTE | 2020-11-01 15:09 | NUR ---
patient sitting up in bed watching tv, respirations even and unlabored. no distress noted. side rails up x 2, bed in low position.
[2020-11-01 17:29] VITALS: BP 137/79
[2020-11-01 23:54] VITALS: Ht 165.1 cm; Wt 79.4 kg
[2020-11-02] VITALS: BP 162/90
[2020-11-02] MEDS ORDERED: TESSALON PERLE100 MG PO (01:06)
[2020-11-02] MEDS ORDERED: ACETAMINOPHEN325 MG PO (01:07)
[2020-11-02 04:00] VITALS: BP 159/99
[2020-11-02] MEDS ORDERED: LOPRESSOR25 MG (05:24)
[2020-11-02 06:17] LABS: BASOPHILS 0.3 % (0-2); EOSINOPHILS 0.9 % (0-7); HEMATOCRIT 40.5 % (36.0-48.0); HEMOGLOBIN 13.3 g/dL (12-16); IMMATURE GRANULOCYTES 0.4 % (0-5); LYMPHOCYTE ABS# 3.39 10x3/uL (1.18-3.74); MCH 31.2 pg (26.0-34.0); MCHC 32.8 g/dL (31.0-37.0); MCV 95.1 fL (80.0-100.0); MEAN PLATELET VOLUME 10.4 fL (7.4-10.4); MONOCYTES 9.7 % (2-11); NEUTROPHIL ABS# 5.44 10x3/uL (1.56-6.13); NEUTROPHILS 54.7 % (40-80); PLATELET COUNT 188 10x3/uL (130-400); RBC 4.26 10x6/uL (4.00-5.40); RDW 13.1 % (11.5-14.5)
[2020-11-02 06:36] LABS: ALKALINE PHOSPHATASE 70 U/L (30-120); BILIRUBIN - TOTAL 0.85 mg/dL (0.2-1.3); CALCIUM 8.2 mg/dL (8.5-10.1); CARBON DIOXIDE 21.5 mmol/L (21.0-32.0); CHLORIDE - SERUM 108 mmol/L (98-107); CREATININE - SERUM 0.6 mg/dL (0.6-1.3); GLUCOSE 98 mg/dL (74-106); MAGNESIUM - SERUM 1.9 mg/dL (1.8-2.4); PROTEIN - SERUM 6.1 g/dL (6.4-8.2); SODIUM 141 mmol/L (136-145); eGFR NON AFRICAN AMERICAN > 90 mL/min (90-120)
[2020-11-02 06:37] LABS: ALT (SGPT) 19 U/L (10-68); CALC OSMOLALITY 278 mosm/kg (275-300); UREA NITROGEN 6 mg/dL (7-18)
[2020-11-02 08:33] VITALS: BP 149/83
[2020-11-02 12:30] VITALS: BP 169/100
--- NOTE | 2020-11-02 12:49 | NUR ---
PATIENT IV LEAKING. REMOVED WITH CATH TIP INTACT. RESTARTED 22G IN LEFT ARM AT THIS TIME X 1 STICK. PATIENT TOLERATED WITH SMALL AMOUNT OF PAIN. DENIES ANY NEEDS AT THIS TIME. CALL LIGHT WITHIN REACH.
[2020-11-02 16:52] VITALS: BP 155/75
[2020-11-02 20:16] VITALS: BP 148/68
[2020-11-03 01:19] VITALS: BP 143/90
[2020-11-03 05:36] VITALS: BP 152/86
[2020-11-03 05:54] LABS: BASOPHILS 0.5 % (0-2); EOSINOPHILS 0.9 % (0-7); HEMATOCRIT 42.3 % (36.0-48.0); HEMOGLOBIN 14.2 g/dL (12-16); IMMATURE GRANULOCYTES 0.4 % (0-5); LYMPHOCYTE ABS# 2.85 10x3/uL (1.18-3.74); LYMPHOCYTES 30.6 % (15-50); MCH 31.8 pg (26.0-34.0); MCHC 33.6 g/dL (31.0-37.0); MCV 94.6 fL (80.0-100.0); MEAN PLATELET VOLUME 10.6 fL (7.4-10.4); MONOCYTES 10.9 % (2-11); NEUTROPHIL ABS# 5.28 10x3/uL (1.56-6.13); NEUTROPHILS 56.7 % (40-80); PLATELET COUNT 204 10x3/uL (130-400); RBC 4.47 10x6/uL (4.00-5.40); RDW 13.1 % (11.5-14.5); WBC 9.3 10x3/uL (4.8-10.8)
[2020-11-03 06:39] LABS: ALKALINE PHOSPHATASE 69 U/L (30-120); ALT (SGPT) 21 U/L (10-68); BILIRUBIN - TOTAL 0.64 mg/dL (0.2-1.3); CALC OSMOLALITY 275 mosm/kg (275-300); CALCIUM 8.5 mg/dL (8.5-10.1); CARBON DIOXIDE 22.7 mmol/L (21.0-32.0); CHLORIDE - SERUM 107 mmol/L (98-107); CREATININE - SERUM 0.6 mg/dL (0.6-1.3); GLUCOSE 103 mg/dL (74-106); MAGNESIUM - SERUM 1.8 mg/dL (1.8-2.4); PROTEIN - SERUM 6.5 g/dL (6.4-8.2); SODIUM 139 mmol/L (136-145); UREA NITROGEN 7 mg/dL (7-18); eGFR NON AFRICAN AMERICAN > 90 mL/min (90-120)
[2020-11-03 06:41] LABS: POTASSIUM - SERUM 3.5 mmol/L (3.5-5.1)
--- NOTE | 2020-11-03 08:00 | NUR ---
ASSESSMENT PER FLOW SHEET. PATIENT IS WITHOUT DISTRESS. SHE DENIES NEEDS AT PRESENT. CALL LIGHT IN REACH.
[2020-11-03 08:22] VITALS: BP 156/92
[2020-11-03] MEDS ORDERED: LEVAQUIN750 MG PO (11:00)
[2020-11-03] MEDS ORDERED: FLAGYL500 MG PO (11:01)
[2020-11-03 11:54] VITALS: BP 144/74
--- NOTE | 2020-11-03 13:11 | NUR ---
IV DCD WITH CATH TIP INTACT.DISCHARGE INSTRUCTIONS,STATES UNDERSTANDING.WAITING ON RIDE FOR TRANSPORT HOME
--- NOTE | 2020-11-03 14:01 | NUR ---
LEFT UNIT VIA WHEELCHAIR FOR TRANSPORT HOME
--- NOTE | 2020-11-03 17:02 | MORECARE ---
CASE MANAGEMENT DISCHARGE SUMMARY PATIENT: JANETTE DURAN UNIT: [id number] ADM DATE: 10/31/20 AGE: 65 : 57 SEX: F ROOM/BED: D.2214 AUTHOR: ISAAC,DOC PHYSICIAN: REFERRING PHYSICIAN: LARISA FERREIRA MD DATE OF SERVICE: 11/03/20 Discharge Plan Patient Name: JANETTE DURAN Facility: [facility]:[place] : 1955 Planned Disposition: Home Anticipated Discharge Date: Discharge Date: 11/03/2020 Expected LOS: Initial Reviewer: [email or web address] Initial Review Date: 10/31/2020 Generated: 11/03/20 6:01 pm Comments DCP- Discharge Planning Updated by [email or web address]: Cecilio Rajan on 11/03/20 4:[address] CM met with patient to complete DC plan and to evaluate needs. Patient lives at home with her son, Brian Duran ([phone]) At discharge, the patient plans to return home and feels this is a safe discharge. CM discussed availability of home health, rehab services, and medical equipment. Patient declined HHS, SNF, IPR, and DME. Patient voiced no other needs at this time and is satisfied with DC plan. Transportation provider at discharge will be with her daughter, Ruby. CM will continue to follow and will assist as needed with dc plans/needs. DCPIA - Discharge Planning Initial Assessment Updated by [email or web address]: Cecilio Rajan on 11/03/20 4:58 pm * Is the patient Alert and Oriented? Yes * How many steps to enter\exit or inside your home? 6/0 * PCP RAE * Pharmacy [facility] in the [place] * Preadmission Environment Home with Family * ADLs Independent * Equipment None * Other Equipment n/a * List name and contact numbers for known caregivers / representatives who currently or will assist patient after discharge: Brian Duran (son) [phone] * Verbal permission to speak to the caregivers and representatives has been obtained from the patient. Yes * Community resources currently utilized None * Please name any agencies selected above. n/a * Additional services required to return to the preadmission environment? No * Can the patient safely return to the preadmission environment? Yes * Has this patient been hospitalized within the prior 30 days at any hospital? No Patient Name: JANETTE DURAN Page [phone] at 1702 All edits/amendments must be made on the electronic document DICTATION DATE: 11/03/201700 POWER AND RECOVERY SUPERINTENDENT: JAVED 11/03/201700 RPT#: [id number] DC DATE:11/03/20 STATUS: DIS IN [facility] [address] [place] [address] END OF REPORT
--- NOTE | 2020-11-05 07:40 | MORECARE ---
CASE MANAGEMENT DISCHARGE SUMMARY PATIENT: JANETTE DURAN UNIT: [id number] ADM DATE: 10/31/20 AGE: 65 : 57 SEX: F ROOM/BED: D.2214 AUTHOR: ISAAC,DOC PHYSICIAN: REFERRING PHYSICIAN: LARISA FERREIRA MD DATE OF SERVICE: 11/05/20 Discharge Plan Patient Name: JANETTE DURAN Facility: [facility]:[place] : 1955 Planned Disposition: Home Anticipated Discharge Date: Discharge Date: 11/03/2020 Expected LOS: Initial Reviewer: [email or web address] Initial Review Date: 10/31/2020 Generated: 11/05/20 8:39 am Comments DCP- Discharge Planning Updated by [email or web address]: Cecilio Rajan on 11/03/20 4:[address] CM met with patient to complete DC plan and to evaluate needs. Patient lives at home with her son, Brian Duran ([phone]) At discharge, the patient plans to return home and feels this is a safe discharge. CM discussed availability of home health, rehab services, and medical equipment. Patient declined HHS, SNF, IPR, and DME. Patient voiced no other needs at this time and is satisfied with DC plan. Transportation provider at discharge will be with her daughter, Ruby. CM will continue to follow and will assist as needed with dc plans/needs. DCPIA - Discharge Planning Initial Assessment Updated by [email or web address]: Cecilio Rajan on 11/03/20 4:58 pm * Is the patient Alert and Oriented? Yes * How many steps to enter\exit or inside your home? 6/0 * PCP RAE * Pharmacy [facility] in the [place] [address] * Preadmission Environment Home with Family * ADLs Independent * Equipment None * Other Equipment n/a * List name and contact numbers for known caregivers / representatives who currently or will assist patient after discharge: Brian Duran (son) [phone] * Verbal permission to speak to the caregivers and representatives has been obtained from the patient. Yes * Community resources currently utilized None * Please name any agencies selected above. n/a * Additional services required to return to the preadmission environment? No * Can the patient safely return to the preadmission environment? Yes * Has this patient been hospitalized within the prior 30 days at any hospital? No Last DP export: 11/03/20 4:02 p Patient Name: JANETTE DURAN Page [phone] at 0740 All edits/amendments must be made on the electronic document DICTATION DATE: 11/05/20738 BAND LINING BANDER: JAVED 11/05/20738 RPT#: [id number] DC DATE:11/03/20 STATUS: DIS IN [facility] [address] [place] [address] END OF REPORT
== END 2020-11-03 14:01 | disposition home or self-care (01) | DRG 378 ==
LOC: D.ER 09:47 → D.EDHOLD 16:15 → D.MS 16:15
PROVIDERS: Family Medicine; ADMIT Family Medicine; ATTEND Family Medicine
DX: K57.33 Diverticulitis of large intestine without perforation or abscess with bleeding (principal); E87.1 Hypo-osmolality and hyponatremia; D72.829 Elevated white blood cell count, unspecified; Z86.711 Personal history of pulmonary embolism; Z79.01 Long term (current) use of anticoagulants; I10 Essential (primary) hypertension; J44.9 Chronic obstructive pulmonary disease, unspecified; K59.09 Other constipation; Z87.891 Personal history of nicotine dependence

== ENCOUNTER 2020-12-07 11:34 | Emergency (ER) | payer BC ==
[~2020-12-07] VITALS: Ht 165.1 cm; Wt 79.5 kg
[~2020-12-07 11:34] MED LIST changes: +ACETAMINOPHEN325 MG PO; +LEVAQUIN750 MG PO; +LOPRESSOR25 MG; +TESSALON PERLE100 MG PO; +ULTRAM50 MG PO
[2020-12-07 11:39] VITALS: BP 151/86; Ht 165.1 cm; Wt 79.5 kg
[2020-12-07 12:05] LABS: BASOPHILS 0.8 % (0-2); HEMATOCRIT 44.3 % (36.0-48.0); HEMOGLOBIN 15.1 g/dL (12-16); IMMATURE GRANULOCYTES 0.4 % (0-5); LYMPHOCYTE ABS# 2.93 10x3/uL (1.18-3.74); LYMPHOCYTES 35.2 % (15-50); MCH 32.9 pg (26.0-34.0); MCHC 34.1 g/dL (31.0-37.0); MCV 96.5 fL (80.0-100.0); MEAN PLATELET VOLUME 10.3 fL (7.4-10.4); MONOCYTES 9.6 % (2-11); NEUTROPHIL ABS# 4.41 10x3/uL (1.56-6.13); PLATELET COUNT 218 10x3/uL (130-400); RBC 4.59 10x6/uL (4.00-5.40); RDW 13.1 % (11.5-14.5); WBC 8.3 10x3/uL (4.8-10.8)
[2020-12-07 12:22] LABS: CALC OSMOLALITY 274 mosm/kg (275-300); CALCIUM 8.9 mg/dL (8.5-10.1); CARBON DIOXIDE 25.6 mmol/L (21.0-32.0); CHLORIDE - SERUM 102 mmol/L (98-107); CREATININE - SERUM 0.7 mg/dL (0.6-1.3); GLUCOSE 100 mg/dL (74-106); SODIUM 138 mmol/L (136-145); UREA NITROGEN 9 mg/dL (7-18); eGFR NON AFRICAN AMERICAN 89 mL/min (90-120)
[2020-12-07 12:29] LABS: APTT 25.6 SECONDS (22.8-39.4); INR 1.14 (0.85-1.17); PROTIME 13.5 SECONDS (11.6-15.0)
[2020-12-07 12:30] LABS: D-DIMER-QUANTITATIVE 0.52 ug/mLFEU (0.20-0.54)
[2020-12-07 12:40] LABS: ALBUMIN 3.7 g/dL (3.4-5.0); ALKALINE PHOSPHATASE 93 U/L (30-120); ALT (SGPT) 18 U/L (10-68); BILIRUBIN - TOTAL 0.66 mg/dL (0.2-1.3); CKMB 1.3 U/L (0.0-3.6); CREATINE KINASE 70 UL (21-215); PRO BNP 264 pg/mL (0-125); TROPONIN-I < 0.017 ng/mL (0.000-0.060)
[2020-12-07] MEDS ORDERED: MEDROL DOSE PACK4 MG PO (18:10)
[2020-12-07] MEDS ORDERED: DOXYCYCLINE HY100 M2 PO (18:10)
== END 2020-12-07 18:27 | disposition home or self-care (01) ==
LOC: D.ER 11:34
PROVIDERS: Emergency Medicine
DX: J44.1 Chronic obstructive pulmonary disease with (acute) exacerbation (principal); R07.89 Other chest pain; I10 Essential (primary) hypertension

== ENCOUNTER → 2020-12-25 16:02 | Outpatient (CLI) | payer MEDICAID ==
[2020-12-07 11:39] VITALS: BMI 29.1
[~2020-12-25 16:02] MED LIST changes: +DOXYCYCLINE HY100 M2 PO; +MEDROL DOSE PACK4 MG PO
== END | disposition home or self-care (01) ==
LOC: D.CT 16:00
PROVIDERS: ATTEND Internal Medicine Hematology & Oncology
DX: J90 Pleural effusion, not elsewhere classified (principal); J18.9 Pneumonia, unspecified organism; J44.9 Chronic obstructive pulmonary disease, unspecified; R97.1 Elevated cancer antigen 125 [CA 125]; F17.203 Nicotine dependence unspecified, with withdrawal; D72.829 Elevated white blood cell count, unspecified; J44.0 Chronic obstructive pulmonary disease with (acute) lower respiratory infection; I10 Essential (primary) hypertension

== ENCOUNTER → 2021-01-18 13:23 | Outpatient (CLI) | payer BC ==
[2020-12-07 11:39] VITALS: BMI 29.1
== END | disposition home or self-care (01) ==
LOC: D.CT 01-10 11:30
PROVIDERS: ATTEND Internal Medicine Gastroenterology
DX: K57.92 Diverticulitis of intestine, part unspecified, without perforation or abscess without bleeding (principal); R10.814 Left lower quadrant abdominal tenderness

== ENCOUNTER 2021-02-11 13:25 | Emergency (ER) | payer BC ==
[~2021-02-11] VITALS: Ht 165.1 cm; Wt 80.0 kg
[2021-02-11 13:29] VITALS: BP 145/74; Ht 165.1 cm; Wt 80.0 kg
[2021-02-11] MEDS ORDERED: ULTRAM50 MG PO (13:32)
[2021-02-11] MEDS ORDERED: TRELEGY ELLIPT1 EACH INH (13:33)
[2021-02-11 14:09] LABS: CALC OSMOLALITY 275 mosm/kg (275-300); CALCIUM 8.5 mg/dL (8.5-10.1); CARBON DIOXIDE 25.1 mmol/L (21.0-32.0); CHLORIDE - SERUM 103 mmol/L (98-107); CREATININE - SERUM 0.8 mg/dL (0.6-1.3); GLUCOSE 103 mg/dL (74-106); POTASSIUM - SERUM 3.6 mmol/L (3.5-5.1); SODIUM 139 mmol/L (136-145); UREA NITROGEN 8 mg/dL (7-18); eGFR NON AFRICAN AMERICAN 76 mL/min (90-120)
[2021-02-11 14:25] LABS: ALBUMIN 3.2 g/dL (3.4-5.0); ALKALINE PHOSPHATASE 87 U/L (30-120); ALT (SGPT) 13 U/L (10-68); BASOPHILS 0.5 % (0-2); BILIRUBIN - TOTAL 0.81 mg/dL (0.2-1.3); CKMB 0.6 U/L (0.0-3.6); CREATINE KINASE 51 UL (21-215); EOSINOPHILS 0.4 % (0-7); HEMATOCRIT 43.2 % (36.0-48.0); HEMOGLOBIN 14.4 g/dL (12-16); MCH 31.2 pg (26.0-34.0); MCHC 33.3 g/dL (31.0-37.0); MCV 93.8 fL (80.0-100.0); MEAN PLATELET VOLUME 9.2 fL (7.4-10.4); MONOCYTES 11.2 % (2-11); NEUTROPHILS 66.9 % (40-80); PRO BNP 253 pg/mL (0-125); PROTEIN - SERUM 6.9 g/dL (6.4-8.2); RDW 12.8 % (11.5-14.5); WBC 10.6 10x3/uL (4.8-10.8)
[2021-02-11 14:27] LABS: PLATELET COUNT 171 10x3/uL (130-400)
[2021-02-11 14:29] LABS: TROPONIN-I < 0.017 ng/mL (0.000-0.060)
[2021-02-11 14:41] LABS: APTT 26.8 SECONDS (22.8-39.4); INR 1.15 (0.85-1.17); PROTIME 13.7 SECONDS (11.6-15.0)
[2021-02-11 14:57] LABS: D-DIMER-QUANTITATIVE 6.99 ug/mLFEU (0.20-0.54)
== END 2021-02-11 17:13 | disposition home or self-care (01) ==
LOC: D.ER 13:25
PROVIDERS: Family Medicine
DX: R07.89 Other chest pain (principal); Z86.711 Personal history of pulmonary embolism; I10 Essential (primary) hypertension; J44.9 Chronic obstructive pulmonary disease, unspecified

== ENCOUNTER 2021-02-13 08:34 | Inpatient (IN) | payer BC ==
[~2021-02-13] VITALS: Ht 165.1 cm; Wt 79.5 kg
[~2021-02-13 08:34] MED LIST changes: +TRELEGY ELLIPT1 EACH INH
[2021-02-13 09:35] LABS: BASOPHILS 0.4 % (0-2); EOSINOPHILS 0.1 % (0-7); HEMATOCRIT 43.6 % (36.0-48.0); HEMOGLOBIN 14.6 g/dL (12-16); LYMPHOCYTES 8.8 % (15-50); MCH 31.1 pg (26.0-34.0); MCHC 33.5 g/dL (31.0-37.0); MCV 92.9 fL (80.0-100.0); MEAN PLATELET VOLUME 8.5 fL (7.4-10.4); MONOCYTES 8.9 % (2-11); NEUTROPHILS 81.8 % (40-80); RDW 12.5 % (11.5-14.5)
[2021-02-13 09:40] LABS: PLATELET COUNT 207 10x3/uL (130-400); WBC 14.9 10x3/uL (4.8-10.8)
[2021-02-13 09:49] LABS: CALC OSMOLALITY 279 mosm/kg (275-300); CALCIUM 8.5 mg/dL (8.5-10.1); CARBON DIOXIDE 23.7 mmol/L (21.0-32.0); CHLORIDE - SERUM 105 mmol/L (98-107); CREATININE - SERUM 0.6 mg/dL (0.6-1.3); POTASSIUM - SERUM 3.5 mmol/L (3.5-5.1); SODIUM 140 mmol/L (136-145); UREA NITROGEN 6 mg/dL (7-18); eGFR NON AFRICAN AMERICAN > 90 mL/min (90-120)
[2021-02-13 09:51] LABS: GLUCOSE 152 mg/dL (74-106)
[2021-02-13 09:53] LABS: BACTERIA FEW HPF (NONE SEEN); BILIRUBIN NEGATIVE (NEGATIVE); KETONE SMALL mg/dL (NEGATIVE); NITRITE NEGATIVE (NEGATIVE); SQUAMOUS EPITHELIAL OCC HPF (0-4); UROBILINOGEN NORMAL mg/dL (< 2); WHITE CELLS - URINE RARE HPF (0-4)
[2021-02-13 09:57] LABS: INR 1.17 (0.85-1.17); PROTIME 13.8 SECONDS (11.6-15.0)
[2021-02-13 10:08] LABS: ALBUMIN 3.2 g/dL (3.4-5.0); ALKALINE PHOSPHATASE 89 U/L (30-120); ALT (SGPT) 10 U/L (10-68); BILIRUBIN - TOTAL 0.89 mg/dL (0.2-1.3); CKMB 2.9 U/L (0.0-3.6); CREATINE KINASE 84 UL (21-215); PROTEIN - SERUM 7.3 g/dL (6.4-8.2)
[2021-02-13 10:11] LABS: TROPONIN-I < 0.017 ng/mL (0.000-0.060)
--- NOTE | 2021-02-13 11:17 | NUR ---
HELD DIGOXIN DUE PER JACQUELYN HERNANDEZ APN.
[2021-02-13 12:01] LABS: CKMB 3.5 U/L (0.0-3.6); CREATINE KINASE 86 UL (21-215)
[2021-02-13 14:23] VITALS: BP 90/50
[2021-02-13 17:21] VITALS: BP 90/50; BMI 29.1
[2021-02-13 18:25] LABS: CKMB 3.4 U/L (0.0-3.6); CREATINE KINASE 93 UL (21-215)
[2021-02-13 18:26] LABS: TROPONIN-I 0.192 ng/mL (0.000-0.060)
[2021-02-13 20:50] VITALS: BP 124/69
--- NOTE | 2021-02-13 22:37 | NUR ---
HR 55 EARLIER. CARDIZEM DROPPED TO 5CC/HR. CONTINUED TO DROP TO HIGH 40'S. CARDIZEM ON HOLD AT THIS TIME. FACTORY EXPERT AWARE AND WILL NOTIFY WITH ANY CHANGES.
[2021-02-14 00:23] VITALS: BP 102/54
[2021-02-14 00:38] LABS: CKMB 3.5 U/L (0.0-3.6); CREATINE KINASE 90 UL (21-215)
[2021-02-14 00:39] LABS: TROPONIN-I 0.176 ng/mL (0.000-0.060)
--- NOTE | 2021-02-14 03:06 | NUR ---
PT MONITOR HR 53. CARDIZEM MED CONT TO HOLD. WILL CONT TO MONITOR.
--- NOTE | 2021-02-14 03:46 | NUR ---
I have reviewed this patient and I concur with the Shift Assessment completed by the Licensed Practical Nurse today this shift.
[2021-02-14 04:58] VITALS: BP 140/78
--- NOTE | 2021-02-14 05:41 | NUR ---
HR 49 CARDIZEM ON HOLD AT THE MOMENT WILL CONT TO MONITOR.
[2021-02-14 06:02] LABS: BASOPHILS 0.5 % (0-2); EOSINOPHILS 0.3 % (0-7); HEMATOCRIT 39.9 % (36.0-48.0); HEMOGLOBIN 13.4 g/dL (12-16); LYMPHOCYTES 18.4 % (15-50); MCH 31.7 pg (26.0-34.0); MCHC 33.7 g/dL (31.0-37.0); MONOCYTES 11.3 % (2-11); NEUTROPHILS 69.5 % (40-80); PLATELET COUNT 221 10x3/uL (130-400); RBC 4.24 10x6/uL (4.00-5.40); RDW 12.8 % (11.5-14.5)
--- NOTE | 2021-02-14 06:07 | NUR ---
CARDIOLOGY CONTACTED MD DANITA JOSHI TO STOP CARDIZEM DRIP UNTIL MORNING EVALUATION.
[2021-02-14 06:12] LABS: WBC 10.7 10x3/uL (4.8-10.8)
[2021-02-14 06:18] LABS: ALBUMIN 2.8 g/dL (3.4-5.0); ALKALINE PHOSPHATASE 85 U/L (30-120); CALCIUM 8.4 mg/dL (8.5-10.1); CARBON DIOXIDE 27.1 mmol/L (21.0-32.0); CHLORIDE - SERUM 104 mmol/L (98-107); CREATININE - SERUM 0.6 mg/dL (0.6-1.3); PHOSPHOROUS 2.4 mg/dL (2.5-4.9); POTASSIUM - SERUM 3.5 mmol/L (3.5-5.1); PROTEIN - SERUM 6.8 g/dL (6.4-8.2); SODIUM 139 mmol/L (136-145); eGFR NON AFRICAN AMERICAN > 90 mL/min (90-120)
[2021-02-14 06:20] LABS: ALT (SGPT) 20 U/L (10-68); CALC OSMOLALITY 275 mosm/kg (275-300); GLUCOSE 101 mg/dL (74-106); UREA NITROGEN 8 mg/dL (7-18)
[2021-02-14 08:09] VITALS: BP 126/64
[2021-02-14 11:00] VITALS: BP 97/54
[2021-02-14 15:30] VITALS: BP 135/72
[2021-02-14 21:34] VITALS: BP 138/69
[2021-02-15 04:32] VITALS: BP 139/87
[2021-02-15 07:50] VITALS: BP 128/61
[2021-02-15 09:23] VITALS: Ht 165.1 cm; Wt 79.5 kg
--- NOTE | 2021-02-15 09:25 | EC ---
PATIENT:JANETTE MELENDEZ DATE OF SERVICE: 02/13/21 SEX: F MEDICAL RECORD: [id number] DATE OF : [birth year] LOCATION:D.M2 D.211 AGE OF PATIENT: 65 ADMISSION DATE: 02/13/21 REFERRING PHYSICIAN: INTERPRETING PHYSICIAN: TREVOR SLATER MD ECHOCARDIOGRAM REPORT ECHO CHARGES 5 ECHO LIMITED Date: 02/14/21 CLINICAL DIAGNOSIS: AFIB ECHOCARDIOGRAPHIC MEASUREMENTS (adult normal given) AC root (d.<3.7cm) cm LV Septum d (<1.2 cm> cm Valve Excursion cm LV Septum (systole) cm Left Atria (s.<4.0cm> 3.3 cm LVPW d(<1.2cm) cm RV (d.<2.3cm) 3.5 cm LVPW (sytole) cm LV diastole(<5.6CM) cm MV E-F(>70mm/sec) cm LV systole cm LVOT Diameter 1.5 cm MV exc.(>10mm) cm Est.ejection fraction (50-75%) % DOPPLER: LVIT cm/sec A 86 cm/sec E 90 cm/sec LA cm/sec RVSP 27 mmHg LVOT 157 cm/sec AOP1/2T m/s Asc. Ao 165 cm/sec RVOT cm/sec RA cm/sec PA cm/sec AV Gradient Peak 10.8 mmHg AV Mean 6.4 mmHg AV Area 1.9 cm MV Gradient Peak 3.6 mmHg MV Mean 1.7 mmHg MV Area cm COMMENTS: Appeals Nurse: Jatin [facility] Specialty Development Consultant: 3 Dr. Solitario TAPE# Pericardial Effusion N DATE OF SERVICE: Somewhat technically difficult study due to the patient's underlying body habitus includes 2D, color flow, spectral Doppler, and M-Mode. Grossly LVH appears present. LV internal dimensions are normal. Wall motion is normal. EF is greater than or equal to 55%. Aortic valve is tricuspid. No evidence of stenosis by Doppler interrogation. Left atrium appears normal. Mitral valve shows no prolapse. Trace MR. Right side is grossly normal. Trace TR. ECHOCARDIOGRAM REPORT [id number] JANETTE MELENDEZ TRANSINT:[id number] Voice Confirmation ID: [id number] DOCUMENT ID: [id number] TREVOR SLATER MD at 0925 CC: [id number] DICTATION DATE: 02/14/21 1726 OVERNIGHT CAREGIVER: 02/14/21 192 ADM IN [place] [id number] [place] [id number]
[2021-02-15 10:55] VITALS: BP 115/53
[2021-02-15 12:21] LABS: BASOPHILS 0.2 % (0-2); EOSINOPHILS 0.3 % (0-7); HEMATOCRIT 41.2 % (36.0-48.0); HEMOGLOBIN 13.5 g/dL (12-16); LYMPHOCYTES 14.4 % (15-50); MCH 30.4 pg (26.0-34.0); MCHC 32.7 g/dL (31.0-37.0); MEAN PLATELET VOLUME 8.1 fL (7.4-10.4); MONOCYTES 10.1 % (2-11); PLATELET COUNT 284 10x3/uL (130-400); RBC 4.43 10x6/uL (4.00-5.40); RDW 12.8 % (11.5-14.5); WBC 13.4 10x3/uL (4.8-10.8)
[2021-02-15 12:37] LABS: ALBUMIN 2.5 g/dL (3.4-5.0); ALKALINE PHOSPHATASE 85 U/L (30-120); ALT (SGPT) 18 U/L (10-68); BILIRUBIN - TOTAL 0.45 mg/dL (0.2-1.3); CALC OSMOLALITY 272 mosm/kg (275-300); CALCIUM 8.7 mg/dL (8.5-10.1); CARBON DIOXIDE 28.5 mmol/L (21.0-32.0); CHLORIDE - SERUM 101 mmol/L (98-107); CREATININE - SERUM 0.7 mg/dL (0.6-1.3); GLUCOSE 114 mg/dL (74-106); MAGNESIUM - SERUM 1.8 mg/dL (1.8-2.4); POTASSIUM - SERUM 3.7 mmol/L (3.5-5.1); PROTEIN - SERUM 6.8 g/dL (6.4-8.2); SODIUM 137 mmol/L (136-145); UREA NITROGEN 7 mg/dL (7-18); eGFR NON AFRICAN AMERICAN 89 mL/min (90-120)
[2021-02-15 12:38] LABS: PHOSPHOROUS 3.7 mg/dL (2.5-4.9)
[2021-02-15] MEDS ORDERED: XARELTO15 MG PO (13:37)
[2021-02-15] MEDS ORDERED: BETAPACE 120 M120 MG PO (13:37)
[2021-02-15] MEDS ORDERED: ZANAFLEX4 MG PO (13:38)
--- NOTE | 2021-02-15 14:40 | NUR ---
02 SAT 92% AT REST AND 91% AFTER AMBULATING.
--- NOTE | 2021-02-15 15:38 | NUR ---
IV AND TELEMETRY DCD. DC PLANS GIVEN. UNDERSTANDING VOICED. ESCORTED TO CAR BY W/C.
== END 2021-02-15 15:39 | disposition home or self-care (01) | DRG 308 ==
LOC: D.ER 08:34 → D.M2 14:14
PROVIDERS: Family Medicine; ADMIT Emergency Medicine; ATTEND Emergency Medicine
DX: I48.92 Unspecified atrial flutter (principal); I26.94 Multiple subsegmental thrombotic pulmonary emboli without acute cor pulmonale; J44.9 Chronic obstructive pulmonary disease, unspecified; I10 Essential (primary) hypertension; R07.81 Pleurodynia; I48.91 Unspecified atrial fibrillation; F12.90 Cannabis use, unspecified, uncomplicated; Z87.01 Personal history of pneumonia (recurrent); Z79.01 Long term (current) use of anticoagulants

== ENCOUNTER 2021-02-16 13:47 | Inpatient (IN) | payer BC ==
[~2021-02-16] VITALS: Ht 165.1 cm; Wt 79.4 kg
[~2021-02-16 13:47] MED LIST changes: +BETAPACE 120 M120 MG PO; +XARELTO15 MG PO; +ZANAFLEX4 MG PO
[2021-02-16 14:26] LABS: HEMATOCRIT 40.7 % (36.0-48.0); HEMOGLOBIN 13.5 g/dL (12-16); MCH 30.7 pg (26.0-34.0); MCHC 33.2 g/dL (31.0-37.0); MCV 92.5 fL (80.0-100.0); MEAN PLATELET VOLUME 8.4 fL (7.4-10.4); RDW 12.8 % (11.5-14.5)
[2021-02-16 14:32] LABS: APTT 37.5 SECONDS (22.8-39.4); CALC OSMOLALITY 278 mosm/kg (275-300); CALCIUM 9.2 mg/dL (8.5-10.1); CARBON DIOXIDE 22.5 mmol/L (21.0-32.0); CHLORIDE - SERUM 103 mmol/L (98-107); CREATININE - SERUM 0.7 mg/dL (0.6-1.3); GLUCOSE 141 mg/dL (74-106); INR 1.71 (0.85-1.17); PLATELET COUNT 357 10x3/uL (130-400); POTASSIUM - SERUM 3.3 mmol/L (3.5-5.1); PROTIME 18.6 SECONDS (11.6-15.0); SODIUM 139 mmol/L (136-145); WBC 18.3 10x3/uL (4.8-10.8); eGFR NON AFRICAN AMERICAN 89 mL/min (90-120)
[2021-02-16 14:33] LABS: UREA NITROGEN 11 mg/dL (7-18)
[2021-02-16 14:40] LABS: ALKALINE PHOSPHATASE 81 U/L (30-120); ALT (SGPT) 19 U/L (10-68); BILIRUBIN - TOTAL 0.34 mg/dL (0.2-1.3); MAGNESIUM - SERUM 2.1 mg/dL (1.8-2.4); PROTEIN - SERUM 7.4 g/dL (6.4-8.2)
[2021-02-16 14:44] LABS: ALBUMIN 3.6 g/dL (3.4-5.0); TROPONIN-I < 0.017 ng/mL (0.000-0.060)
[2021-02-16 15:14] LABS: EOSINOPHILS 1 % (0-7); LYMPHOCYTES 10 % (15-50); MONOCYTES 6 % (2-11); NEUTROPHILS 82 % (40-80); PLATELET ESTIMATE NORMAL
--- NOTE | 2021-02-16 19:48 | NUR ---
PT ARRIVED VIA STRETCHER. TO BR WITHOUT DIFFICULTY. NO DISTRESS NOTED.
--- NOTE | 2021-02-16 21:01 | NUR ---
UPDRAFT WITHELD DUE TO ACTIVE HEMOPTYSIS
[2021-02-16 22:10] VITALS: BP 128/59; BMI 29.1
--- NOTE | 2021-02-16 23:29 | NUR ---
PM MEDS GIVEN AT 2121 HRS. NO DISTRESS NOTED. TRAMADOL 50MG PO GIVEN FOR C/O L BACK PAIN AT 2209 HRS. VSS. ADMISSION ASSESSMENT, HISTORY AND HOME MED LIST COMPLETED BY 2234 HRS. VSS. SR PER CM HR 80. ALERT AND ORIENTED TO PERSON, PLACE AND TIME. SCHUSTER. PALPABLE PERIPHERAL PULSES. IV TO RAC WITH NS AT 50CC/HR. IV PATENT. LUNGS DIMINISHED TO L LOWER LOBE. HEMOPTYSIS NOTED THOUGH PT STATES NOT BAD BEFORE. SPUTUM MIXED WITH BLOOD. NO CLOTS NOTED. PT CURRENTLY RESTING WITH EYES CLOSED. RESP EVEN AND REGULAR. SR UP X1, CALL LIGHT WITHIN REACH AND DAUGHTER AT BEDSIDE.
[2021-02-17] VITALS: BP 139/75
--- NOTE | 2021-02-17 00:55 | NUR ---
PT RESTING WITH EYES CLOSED. RESP EVEN AND REGULAR. CALL LIGHT WITHIN REACH.
--- NOTE | 2021-02-17 02:36 | NUR ---
PT RESTING WITH EYES CLOSED. RESP EVEN AND REGULAR. CALL LIGHT WITHIN REACH AND DAUGHTER AT BEDSIDE.
[2021-02-17 04:00] VITALS: BP 158/86
[2021-02-17 06:02] LABS: BASOPHILS 0.1 % (0-2); EOSINOPHILS 0 % (0-7); HEMATOCRIT 39.2 % (36.0-48.0); IMMATURE GRANULOCYTES 0.5 % (0-5); LYMPHOCYTE ABS# 3.09 10x3/uL (1.18-3.74); LYMPHOCYTES 21.7 % (15-50); MCHC 33.2 g/dL (31.0-37.0); MCV 93.3 fL (80.0-100.0); MEAN PLATELET VOLUME 10.4 fL (7.4-10.4); MONOCYTES 7.9 % (2-11); NEUTROPHIL ABS# 9.96 10x3/uL (1.56-6.13); NEUTROPHILS 69.8 % (40-80); PLATELET COUNT 378 10x3/uL (130-400); RDW 12.3 % (11.5-14.5); WBC 14.3 10x3/uL (4.8-10.8)
[2021-02-17 06:16] LABS: ALKALINE PHOSPHATASE 81 U/L (30-120); CALCIUM 8.6 mg/dL (8.5-10.1); CHLORIDE - SERUM 106 mmol/L (98-107); CREATININE - SERUM 0.7 mg/dL (0.6-1.3); MAGNESIUM - SERUM 2.1 mg/dL (1.8-2.4); PHOSPHOROUS 3.3 mg/dL (2.5-4.9); POTASSIUM - SERUM 3.5 mmol/L (3.5-5.1); PROTEIN - SERUM 6.8 g/dL (6.4-8.2); SODIUM 142 mmol/L (136-145); UREA NITROGEN 13 mg/dL (7-18); eGFR NON AFRICAN AMERICAN 89 mL/min (90-120)
[2021-02-17 06:18] LABS: ALBUMIN 2.5 g/dL (3.4-5.0); ALT (SGPT) 25 U/L (10-68); CALC OSMOLALITY 282 mosm/kg (275-300); GLUCOSE 93 mg/dL (74-106)
--- NOTE | 2021-02-17 06:30 | NUR ---
PT RESTED WELL DURING SHIFT. SR PER CM. IS AND FLUTTER VALVE BROUGHT TI ROOM. PT STTES KNOWS HOW TO USE IS, RT EXPLAINING FLUTTER VALVE. NEEEDS MET; WILL CONTINUE TO MONITOR.
--- NOTE | 2021-02-17 07:00 | NUR ---
RECEIVED REPORT. ASSUMED CARE OF PATIENT. PATIENT RESTING WITH EYES CLOSED, RESP EVEN AND UNLABORED. PATIENT WITH DAUGHTER AT BEDSIDE. WHITE BOARD UPDATED, BEDSIDE SHIFT REPORT COMPLETE. NO DISTRESS. CALL LIGHT WITHIN REACH.
[2021-02-17 08:23] VITALS: BP 129/72
--- NOTE | 2021-02-17 14:24 | NUR ---
medicated for pain at this time.
[2021-02-17 14:59] VITALS: BP 137/82
--- NOTE | 2021-02-17 15:48 | NUR ---
medicated with tramadol, xanaflex and tylenol not effective to relieve pain. patient resting in bed at this time.
--- NOTE | 2021-02-17 18:38 | NUR ---
SPOKE WITH PATIENT DAUGHTER AND GAVE UPDATE ON CONDITION. ENCOURAGED PATIENTS DAUGHTER TO VISIT WITH HER MOM. PATIENTS DAUGHTER THANKED THIS DEVELOPING MACHINE TENDER.
--- NOTE | 2021-02-17 20:22 | NUR ---
INITIAL ROUNDS COMPLETED AT 1920 HRS. PT DENIES NEED FOR PAIN MEDS AT THIS TIME. REQUEST TO LEAVE IV OFF. CALL LIGHT WITHIN REACH.
[2021-02-17 20:56] VITALS: BP 141/73
--- NOTE | 2021-02-17 22:34 | NUR ---
ASSESSMENT COMPLETED AT 1955 HRS. VSS. ALERT AND ORIENTED TO PERSON, PLACE AND TIME. SCHUSTER. PALPABLE PERIPHERAL PULSES. IV TO RAC SL PER PT REQUEST. LUNGS DIMINISHED IN BASES TO L SIDE. PRODUCTIVE COUGH NOTED WITH BLOOD STREAKED SPUTUM. PM MEDS GIVEN PER ORDERS. PT CURRENTLY WATCHING TV. CALL LIGHT WITHIN REACH AND DAUGHTER AT BEDSIDE.
--- NOTE | 2021-02-17 23:59 | NUR ---
PT TALKING WITH DAUGHTER. NO DISTRESS NOTED.
--- NOTE | 2021-02-18 02:07 | NUR ---
PT RESTING WITH EYES CLOSED. RESP EVEN AND REGULAR. DAUGHTER AT BEDSIDE.
--- NOTE | 2021-02-18 04:42 | NUR ---
PT RESTING WITH EYES CLOSED. RESP EVEN AND REGULAR. CALL LIGHT WITHIN REACH AND DAUGHTER AT BEDSIDE.
--- NOTE | 2021-02-18 06:44 | NUR ---
VSS THROUGHOUT NIHGT. PT RESTED WELL DURING SHIFT. NEEDS MET; WILL CONTINUE TO MONITOR.
--- NOTE | 2021-02-18 07:00 | NUR ---
RECEIVED REPORT. ASSUMED CARE OF PATIENT. PATIENT SITTING UP IN BED WITH ADRY SIMMONS WHITE BOARD UPDATED, BEDSIDE SHIFT REPORT COMPLETE. CALL LIGHT WITHIN REACH. DAUGHTER AT BEDSIDE. DENIES NEEDS AT THIS TIME. NO DISTRESS.
[2021-02-18 08:50] LABS: ALBUMIN 2.4 g/dL (3.4-5.0); ALKALINE PHOSPHATASE 74 U/L (30-120); ALT (SGPT) 21 U/L (10-68); BILIRUBIN - TOTAL 0.31 mg/dL (0.2-1.3); CALC OSMOLALITY 278 mosm/kg (275-300); CALCIUM 8.5 mg/dL (8.5-10.1); CARBON DIOXIDE 24.5 mmol/L (21.0-32.0); CHLORIDE - SERUM 107 mmol/L (98-107); CREATININE - SERUM 0.6 mg/dL (0.6-1.3); GLUCOSE 72 mg/dL (74-106); PHOSPHOROUS 3.8 mg/dL (2.5-4.9); POTASSIUM - SERUM 3.3 mmol/L (3.5-5.1); PROTEIN - SERUM 6.4 g/dL (6.4-8.2); SODIUM 141 mmol/L (136-145); UREA NITROGEN 9 mg/dL (7-18); eGFR NON AFRICAN AMERICAN > 90 mL/min (90-120)
[2021-02-18 08:56] LABS: BASOPHILS 1.2 % (0-2); EOSINOPHILS 0.4 % (0-7); HEMOGLOBIN 13.1 g/dL (12-16); LYMPHOCYTES 27.4 % (15-50); MCH 30.4 pg (26.0-34.0); MCHC 32.6 g/dL (31.0-37.0); MCV 93.3 fL (80.0-100.0); MEAN PLATELET VOLUME 8.7 fL (7.4-10.4); MONOCYTES 9.6 % (2-11); NEUTROPHILS 61.4 % (40-80); PLATELET COUNT 372 10x3/uL (130-400); RBC 4.29 10x6/uL (4.00-5.40); WBC 11.7 10x3/uL (4.8-10.8)
[2021-02-18 09:43] VITALS: BP 157/78
--- NOTE | 2021-02-18 09:54 | NUR ---
TRAMADOL, TYLENOL, NOR ZANAFLEX ARE HELPING CONTROL PAIN TO BACK AND RIBS. NEW ORDER RECIEVED FOR ONE TIME DOSE OF MORPHINE. PATIENT IS AGREEABLE TO RECEIVE MORPHINE X 1.
--- NOTE | 2021-02-18 10:11 | NUR ---
MEDICATED FOR PAIN AT THIS TIME.
[2021-02-18 12:17] VITALS: BP 140/75
[2021-02-18 12:31] VITALS: Ht 165.1 cm; Wt 79.4 kg
--- NOTE | 2021-02-18 14:44 | NUR ---
MEDICATED FOR PAIN AT THIS TIME. NO DISTRESS. TOLERATING ABX THERAPY WELL.
--- NOTE | 2021-02-18 15:05 | NUR ---
20 GAUGE IV PLACED TO LEFT WRIST X 1 STICK. GOOD BLOOD RETURN, EASY FLUSH. TAPED DATED AND SECURED. PATIENT TOLERATED IV PLACEMENT WELL. IV ABX NOW INFUSING ORDERED. 20 GAUGE IV REMOVED FROM RIGHT FOREARM. AREA LEAKING FROM INSERTION SITE. CATHETER TIP INTACT. 2X2 GAUZE APPLIED AND SECURED WITH BANDAID.
[2021-02-18 15:36] LABS: BILIRUBIN NEGATIVE (NEGATIVE); KETONE NEGATIVE mg/dL (< 1+); NITRITE NEGATIVE (NEGATIVE); PH 6.5 (5.0-8.0); SQUAMOUS EPITHELIAL <1 HPF (0-4); UROBILINOGEN NORMAL mg/dL (< 2); WHITE CELLS - URINE <1 HPF (0-4)
[2021-02-18 20:00] VITALS: BP 123/73
--- NOTE | 2021-02-18 20:00 | NUR ---
REPORT RECEIVED. PT A&O, UP IN BED WATCHING TV. NO S/S OF DISTRESS OBSERVED. RR EVEN & UNLABORED 2L. IV TO L WRIST 20G W/ NS @ 50CC/HR. SR 64 ON TELE. BED LOCKED AND LOWERED, CL IN REACH. ASSESSMENT COMPLETE. WILL CONT POC.
[2021-02-19] VITALS: BP 127/71
[2021-02-19 04:00] VITALS: BP 155/78
[2021-02-19 05:43] LABS: BASOPHILS 0.7 % (0-2); EOSINOPHILS 0.8 % (0-7); HEMATOCRIT 38.7 % (36.0-48.0); HEMOGLOBIN 13.1 g/dL (12-16); LYMPHOCYTES 28.9 % (15-50); MCH 31.3 pg (26.0-34.0); MCHC 33.8 g/dL (31.0-37.0); MCV 92.5 fL (80.0-100.0); MEAN PLATELET VOLUME 7.8 fL (7.4-10.4); NEUTROPHILS 59.6 % (40-80); PLATELET COUNT 341 10x3/uL (130-400); RBC 4.18 10x6/uL (4.00-5.40); WBC 10.1 10x3/uL (4.8-10.8)
[2021-02-19 06:25] LABS: ALBUMIN 2.5 g/dL (3.4-5.0); ALKALINE PHOSPHATASE 78 U/L (30-120); ALT (SGPT) 25 U/L (10-68); BILIRUBIN - TOTAL 0.23 mg/dL (0.2-1.3); CALCIUM 8.4 mg/dL (8.5-10.1); CARBON DIOXIDE 25.5 mmol/L (21.0-32.0); CHLORIDE - SERUM 105 mmol/L (98-107); CREATININE - SERUM 0.7 mg/dL (0.6-1.3); GLUCOSE 92 mg/dL (74-106); PROTEIN - SERUM 6.4 g/dL (6.4-8.2); SODIUM 140 mmol/L (136-145); eGFR NON AFRICAN AMERICAN 89 mL/min (90-120)
[2021-02-19 06:26] LABS: CALC OSMOLALITY 276 mosm/kg (275-300); POTASSIUM - SERUM 3.8 mmol/L (3.5-5.1); UREA NITROGEN 6 mg/dL (7-18)
[2021-02-19 08:35] VITALS: BP 155/75
--- NOTE | 2021-02-19 10:04 | MORECARE ---
CASE MANAGEMENT DISCHARGE SUMMARY PATIENT: JANETTE DURAN UNIT: [id number] ADM DATE: 02/17/21 AGE: 65 : 57 SEX: F ROOM/BED: D.9110 AUTHOR: CLAYTON GRAY PHYSICIAN: REFERRING PHYSICIAN: LAYLA CHEUNG MD DATE OF SERVICE: 02/19/21 Case Management Discharge Planning Summary DCP REVIEW SUMMARY ANTICIPATED D/C DATE: EXPECTED LOS : CASE STATUS: DCP Initiated INITIAL REVIEW: 02/19/2021 INITIAL REVIEWER: Jessica Rodriguez FINAL DISCHARGE DISPOSITION: : FINAL REVIEWER: FINAL REVIEW DATE: DCP Focus Questions & Answers DCP Evaluation QUESTION: ANSWER Patient gives permission to discuss discharge plans with: (name, relationship and number) : Brian Duran - chris - [phone] Patient's ability to cope with chronic illness : d. No chronic illness Patient's current cognitive status: : *Oriented to person, place, situation, time and present Family / Caregiver's ability to cope with chronic illness: : a. Adequate (ability to meet patient's medical needs, ensures patient attends medical appts.) Patient and/or caregiver agree upon recommended discharge plan? : Yes Physical Status: : Independent with ADL's Family / Caregiver's ability to cope with chronic illness: : a. Adequate (ability to meet patient's medical needs, ensures patient attends medical appts.) Functional screen assessment: : No issues identified Does the patient have the ability to pay for or attain post discharge needs / services? : Yes Living Arrangements: : Home with Parents Is there a likelihood that the patient will require additional services to return to the preadmission environment? : No Equipment needed for post hospitalization: : None Baseline cognitive status: : *Oriented to person, place, situation, time and present Results of this evaluation have been discussed with: : Patient Physical environment modification needed / anticipated for discharge: : No Medication Management: : Patient states can afford medications Pharmacy name(s): : [facility] [address] Pearson Does Patient have transportation to get home and to follow-up medical appointments when discharged from the hospital? : Yes Comments: : Patient states she drives, but her son and daughter also support her Would patient like to participate in any Care Coordination programs (if applicable): : Not applicable Does the patient have electricity at home? : Yes Does the patient have running water in their house? : Yes Equipment in use: : None Mental health screen: : No mental health history Abuse/Neglect: : None Resources / Services in place: : None DCP Re-evaluation QUESTION: ANSWER Would patient like to participate in any Care Coordination programs (if applicable): : Not applicable PATIENT: JANETTE DURAN ENCOUNTER: [id number] MEDICAL RECORD#: [id number] ADMISSION DATE: 02/17/2021 DISCHARGE DATE: ATTENDING MD: LAYLA VICK : AGE: 65 MARITAL STATUS: D DC PLAN ID: [id number] FACILITY: [facility] PRINTED ON: 02/19/21 10:03 CT All edits/amendments must be made on the electronic document DICTATION DATE: 02/19/21 100 NETWORK OPERATIONS TECHNICIAN: JAVED 02/19/21 100 RPT#: [id number] DC DATE: STATUS: ADM IN [facility] [address] [place] [address] END OF REPORT
--- NOTE | 2021-02-19 10:15 | MORECARE ---
CASE MANAGEMENT DISCHARGE SUMMARY PATIENT: JANETTE DURAN UNIT: [id number] ADM DATE: 02/17/21 AGE: 65 : 57 SEX: F ROOM/BED: D.2580 AUTHOR: CLAYTON GRAY PHYSICIAN: REFERRING PHYSICIAN: LAYLA CHEUNG MD DATE OF SERVICE: 02/19/21 Case Management Discharge Planning Summary COMMENTS ENTERED DATE: 02/19/21 10:02 CT COMMENT TYPE: Discharge Planning REVIEWER: Jessica Rodriguez Discharge Planning Rescreening completed. CM met with patient to discuss discharge planning/needs. Patient states that she felt she was discharged too soon on prior admission. States she did received her new Rx and was taking them as prescribed. States she lives with her son in a single story house. States her daughter, Ruby Renee, is also supportive and assists with her care. States she is independent with all ADL's and AIDL's. States her son will take her home on discharge. I discussed availability of home health, rehab and DME needs. She declines needs. States her adult children and 18 year old grand child live in the home and can assist her as needed. CM will continue to follow and assist with discharge planning/needs. DCP REVIEW SUMMARY ANTICIPATED D/C DATE: EXPECTED LOS : CASE STATUS: DCP Initiated INITIAL REVIEW: 02/19/2021 INITIAL REVIEWER: Jessica Rodriguez FINAL DISCHARGE DISPOSITION: : FINAL REVIEWER: FINAL REVIEW DATE: DCP Focus Questions & Answers DCP Evaluation QUESTION: ANSWER Patient gives permission to discuss discharge plans with: (name, relationship and number) : Brian Duran - chris - [phone] Patient's ability to cope with chronic illness : d. No chronic illness Patient's current cognitive status: : *Oriented to person, place, situation, time and present Family / Caregiver's ability to cope with chronic illness: : a. Adequate (ability to meet patient's medical needs, ensures patient attends medical appts.) Patient and/or caregiver agree upon recommended discharge plan? : Yes Physical Status: : Independent with ADL's Family / Caregiver's ability to cope with chronic illness: : a. Adequate (ability to meet patient's medical needs, ensures patient attends medical appts.) Functional screen assessment: : No issues identified Does the patient have the ability to pay for or attain post discharge needs / services? : Yes Living Arrangements: : Home with Parents Is there a likelihood that the patient will require additional services to return to the preadmission environment? : No Equipment needed for post hospitalization: : None Baseline cognitive status: : *Oriented to person, place, situation, time and present Results of this evaluation have been discussed with: : Patient Physical environment modification needed / anticipated for discharge: : No Medication Management: : Patient states can afford medications Pharmacy name(s): : [facility] [address] Pearson Does Patient have transportation to get home and to follow-up medical appointments when discharged from the hospital? : Yes Comments: : Patient states she drives, but her son and daughter also support her Would patient like to participate in any Care Coordination programs (if applicable): : Not applicable Does the patient have electricity at home? : Yes Does the patient have running water in their house? : Yes Equipment in use: : None Mental health screen: : No mental health history Abuse/Neglect: : None Resources / Services in place: : None DCP Re-evaluation QUESTION: ANSWER Would patient like to participate in any Care Coordination programs (if applicable): : Not applicable PATIENT: JANETTE DURAN ENCOUNTER: [id number] MEDICAL RECORD#: [id number] ADMISSION DATE: 02/17/2021 DISCHARGE DATE: ATTENDING MD: LAYLA VICK : AGE: 65 MARITAL STATUS: D DC PLAN ID: [id number] FACILITY: [facility] PRINTED ON: 02/19/21 10:14 CT All edits/amendments must be made on the electronic document DICTATION DATE: 02/19/21 1014 EXTENSION DIVISION DIRECTOR: DM 02/19/21 1014 RPT#: [id number] DC DATE: STATUS: ADM IN [facility] [address] [place] [address] END OF REPORT
--- NOTE | 2021-02-19 10:28 | NUR ---
PATIENT AAOX4 SITTING HIGH FOWLERS GRIMACING, PAIN MEDICATIONS ADMINISTERED WITH NO COMPLICATIONS, IV FLUIDS INFUSING, NO FURTHER NEEDS AT THIS TIME, ESVIN R[place]
[2021-02-19 12:20] VITALS: BP 118/68
[2021-02-19 16:13] VITALS: BP 134/74
[2021-02-19 20:00] VITALS: BP 162/81
--- NOTE | 2021-02-19 20:00 | NUR ---
THIS PT WAS ADMITTED FOR HEMOPTSYS AND IS ON BLOOD THINNERS. SHE IS A/A/O IS AD MICHELLE IN HER ROOM. SHE HAS AN IV IN THE LEFT WRIST WITH NS AT 50CC/HR. SHE IS ON THE TELE MONITOR WITH SR RATE 63. SHE IS ON 2L O2 VIA NC. PT TELLS ME THAT SHE CAN HAVE DILAUDID EVERY 4 HOURS. I CORRECTED HER BY LETTING IT BE KNOWN THAT IT'S EVERY 6 HOURS. SHE STATES SHE JUST CANNOT EVEN TRY TO DO HER IS. SHE IS NICE TO WORK WITH.
[2021-02-20] VITALS: BP 129/71
[2021-02-20 04:00] VITALS: BP 161/82
[2021-02-20 06:18] LABS: BASOPHILS 0.8 % (0-2); EOSINOPHILS 0.6 % (0-7); HEMATOCRIT 40.4 % (36.0-48.0); HEMOGLOBIN 13.5 g/dL (12-16); LYMPHOCYTES 25.3 % (15-50); MCH 30.7 pg (26.0-34.0); MCHC 33.5 g/dL (31.0-37.0); MCV 91.4 fL (80.0-100.0); MEAN PLATELET VOLUME 7.6 fL (7.4-10.4); NEUTROPHILS 64.3 % (40-80); PLATELET COUNT 380 10x3/uL (130-400); RBC 4.42 10x6/uL (4.00-5.40); RDW 13.1 % (11.5-14.5); WBC 10.7 10x3/uL (4.8-10.8)
[2021-02-20 06:55] LABS: ALBUMIN 2.6 g/dL (3.4-5.0); ALKALINE PHOSPHATASE 78 U/L (30-120); ALT (SGPT) 26 U/L (10-68); BILIRUBIN - TOTAL 0.42 mg/dL (0.2-1.3); CALC OSMOLALITY 275 mosm/kg (275-300); CALCIUM 8.8 mg/dL (8.5-10.1); CARBON DIOXIDE 23.6 mmol/L (21.0-32.0); CHLORIDE - SERUM 105 mmol/L (98-107); CREATININE - SERUM 0.6 mg/dL (0.6-1.3); GLUCOSE 107 mg/dL (74-106); PHOSPHOROUS 3.6 mg/dL (2.5-4.9); POTASSIUM - SERUM 3.7 mmol/L (3.5-5.1); PROTEIN - SERUM 6.9 g/dL (6.4-8.2); SODIUM 139 mmol/L (136-145); eGFR NON AFRICAN AMERICAN > 90 mL/min (90-120)
[2021-02-20 06:59] LABS: UREA NITROGEN 8 mg/dL (7-18)
[2021-02-20] MEDS ORDERED: ELIQUIS5 MG PO (08:18)
[2021-02-20] MEDS ORDERED: OMNICEF300 MG PO (08:19)
[2021-02-20 08:27] VITALS: BP 132/79
--- NOTE | 2021-02-20 09:42 | NUR ---
PATIENT AAOX4, RESP EVEN AND NON LABORED, NO S/S OF DISTRESS, MEDICATIONS ADMINISTERED WITH NO COMPLICATIONS, NO FURTHER NEEDS AT THIS TIME, CLIR, BLP
--- NOTE | 2021-02-20 10:53 | MORECARE ---
CASE MANAGEMENT DISCHARGE SUMMARY PATIENT: JANETTE DURAN UNIT: [id number] ADM DATE: 02/17/21 AGE: 65 : 57 SEX: F ROOM/BED: D.7169 AUTHOR: CLAYTON GRAY PHYSICIAN: REFERRING PHYSICIAN: LAYLA CHEUNG MD DATE OF SERVICE: 02/20/21 Case Management Discharge Planning Summary COMMENTS ENTERED DATE: 02/19/21 10:02 CT COMMENT TYPE: Discharge Planning REVIEWER: Jessica Rodriguez Discharge Planning Rescreening completed. CM met with patient to discuss discharge planning/needs. Patient states that she felt she was discharged too soon on prior admission. States she did received her new Rx and was taking them as prescribed. States she lives with her son in a single story house. States her daughter, Ruby Renee, is also supportive and assists with her care. States she is independent with all ADL's and AIDL's. States her son will take her home on discharge. I discussed availability of home health, rehab and DME needs. She declines needs. States her adult children and 18 year old grand child live in the home and can assist her as needed. CM will continue to follow and assist with discharge planning/needs. DCP REVIEW SUMMARY ANTICIPATED D/C DATE: EXPECTED LOS : CASE STATUS: DCP Initiated INITIAL REVIEW: 02/19/2021 INITIAL REVIEWER: Jessica Rodriguez FINAL DISCHARGE DISPOSITION: : FINAL REVIEWER: FINAL REVIEW DATE: DCP Focus Questions & Answers DCP Evaluation QUESTION: ANSWER Patient and/or caregiver agree upon recommended discharge plan? : Yes Family / Caregiver's ability to cope with chronic illness: : a. Adequate (ability to meet patient's medical needs, ensures patient attends medical appts.) Patient's current cognitive status: : *Oriented to person, place, situation, time and present Patient's ability to cope with chronic illness : d. No chronic illness Patient gives permission to discuss discharge plans with: (name, relationship and number) : Brian Duran - son - [phone] Does the patient have the ability to pay for or attain post discharge needs / services? : Yes Functional screen assessment: : No issues identified Family / Caregiver's ability to cope with chronic illness: : a. Adequate (ability to meet patient's medical needs, ensures patient attends medical appts.) Physical Status: : Independent with ADL's Equipment needed for post hospitalization: : None Is there a likelihood that the patient will require additional services to return to the preadmission environment? : No Living Arrangements: : Home with Parents Results of this evaluation have been discussed with: : Patient Baseline cognitive status: : *Oriented to person, place, situation, time and present Physical environment modification needed / anticipated for discharge: : No Medication Management: : Patient states can afford medications Pharmacy name(s): : [facility] [address] eParson Does Patient have transportation to get home and to follow-up medical appointments when discharged from the hospital? : Yes Would patient like to participate in any Care Coordination programs (if applicable): : Not applicable Comments: : Patient states she drives, but her son and daughter also support her Does the patient have electricity at home? : Yes Does the patient have running water in their house? : Yes Equipment in use: : None Mental health screen: : No mental health history Abuse/Neglect: : None Resources / Services in place: : None DCP Re-evaluation QUESTION: ANSWER Would patient like to participate in any Care Coordination programs (if applicable): : Not applicable PATIENT: JANETTE DURAN ENCOUNTER: [id number] MEDICAL RECORD#: [id number] ADMISSION DATE: 02/17/2021 DISCHARGE DATE: ATTENDING MD: LAYLA VICK : AGE: 65 MARITAL STATUS: D DC PLAN ID: [id number] FACILITY: [facility] PRINTED ON: 02/20/21 10:53 CT All edits/amendments must be made on the electronic document DICTATION DATE: 02/20/21 105 EDUCATIONAL THERAPY TEACHER: JAVED 02/20/21 1053 RPT#: [id number] DC DATE: STATUS: ADM IN [facility] [address] [place] [address] END OF REPORT
--- NOTE | 2021-02-20 11:33 | NUR ---
PATIENT DISCHARGED AND WHEELED TO THE ER WITH DAUGHTER, NO FURTHER NEEDS
--- NOTE | 2021-02-25 14:16 | MORECARE ---
CASE MANAGEMENT DISCHARGE SUMMARY PATIENT: JANETTE DURAN UNIT: [id number] ADM DATE: 02/17/21 AGE: 65 : 57 SEX: F ROOM/BED: D.5919 AUTHOR: CLAYTON GRAY PHYSICIAN: REFERRING PHYSICIAN: LAYLA CHEUGN MD DATE OF SERVICE: 02/25/21 Case Management Discharge Planning Summary COMMENTS ENTERED DATE: 02/19/21 10:02 CT COMMENT TYPE: Discharge Planning REVIEWER: Jessica Rodriguez Discharge Planning Rescreening completed. CM met with patient to discuss discharge planning/needs. Patient states that she felt she was discharged too soon on prior admission. States she did received her new Rx and was taking them as prescribed. States she lives with her son in a single story house. States her daughter, Ruby Renee, is also supportive and assists with her care. States she is independent with all ADL's and AIDL's. States her son will take her home on discharge. I discussed availability of home health, rehab and DME needs. She declines needs. States her adult children and 18 year old grand child live in the home and can assist her as needed. CM will continue to follow and assist with discharge planning/needs. DCP REVIEW SUMMARY ANTICIPATED D/C DATE: EXPECTED LOS : CASE STATUS: DCP Initiated INITIAL REVIEW: 02/19/2021 INITIAL REVIEWER: Jessica Rodriguez FINAL DISCHARGE DISPOSITION: : FINAL REVIEWER: FINAL REVIEW DATE: DCP Focus Questions & Answers DCP Evaluation QUESTION: ANSWER Patient gives permission to discuss discharge plans with: (name, relationship and number) : Brian Duran - chris - [phone] Patient's ability to cope with chronic illness : d. No chronic illness Patient's current cognitive status: : *Oriented to person, place, situation, time and present Family / Caregiver's ability to cope with chronic illness: : a. Adequate (ability to meet patient's medical needs, ensures patient attends medical appts.) Patient and/or caregiver agree upon recommended discharge plan? : Yes Physical Status: : Independent with ADL's Family / Caregiver's ability to cope with chronic illness: : a. Adequate (ability to meet patient's medical needs, ensures patient attends medical appts.) Functional screen assessment: : No issues identified Does the patient have the ability to pay for or attain post discharge needs / services? : Yes Living Arrangements: : Home with Parents Is there a likelihood that the patient will require additional services to return to the preadmission environment? : No Equipment needed for post hospitalization: : None Baseline cognitive status: : *Oriented to person, place, situation, time and present Results of this evaluation have been discussed with: : Patient Physical environment modification needed / anticipated for discharge: : No Medication Management: : Patient states can afford medications Pharmacy name(s): : [facility] [address] PCP [address] Pearson Does Patient have transportation to get home and to follow-up medical appointments when discharged from the hospital? : Yes Comments: : Patient states she drives, but her son and daughter also support her Would patient like to participate in any Care Coordination programs (if applicable): : Not applicable Does the patient have electricity at home? : Yes Does the patient have running water in their house? : Yes Equipment in use: : None Mental health screen: : No mental health history Abuse/Neglect: : None Resources / Services in place: : None DCP Re-evaluation QUESTION: ANSWER Would patient like to participate in any Care Coordination programs (if applicable): : Not applicable PATIENT: JANETTE DURAN ENCOUNTER: [id number] MEDICAL RECORD#: [id number] ADMISSION DATE: 02/17/2021 DISCHARGE DATE: 02/20/2021 ATTENDING MD: LAYLA VICK : AGE: 65 MARITAL STATUS: D DC PLAN ID: [id number] FACILITY: [facility] PRINTED ON: 02/25/21 14:16 CT All edits/amendments must be made on the electronic document DICTATION DATE: 02/25/211415 QUALITY ASSURANCE LAB TECHNICIAN: JAVED 02/25/21 141 RPT#: [id number] DC DATE:02/20/21 STATUS: DIS IN [facility] [address] [place] [address] END OF REPORT
== END 2021-02-20 11:33 | disposition home or self-care (01) | DRG 813 ==
LOC: D.ER 13:47 → OBSVTIME 14:30 → D.EDHOLD 14:30 → D.M2 17:21
PROVIDERS: Family Medicine; ADMIT Emergency Medicine; ATTEND Emergency Medicine
DX: D68.32 Hemorrhagic disorder due to extrinsic circulating anticoagulants (principal); J18.9 Pneumonia, unspecified organism; I26.99 Other pulmonary embolism without acute cor pulmonale; R04.2 Hemoptysis; D68.52 Prothrombin gene mutation; J90 Pleural effusion, not elsewhere classified; T45.515A Adverse effect of anticoagulants, initial encounter; I10 Essential (primary) hypertension; J44.9 Chronic obstructive pulmonary disease, unspecified; K57.90 Diverticulosis of intestine, part unspecified, without perforation or abscess without bleeding; Z79.01 Long term (current) use of anticoagulants; Z87.891 Personal history of nicotine dependence; R09.1 Pleurisy; K21.9 Gastro-esophageal reflux disease without esophagitis; E87.6 Hypokalemia; E78.5 Hyperlipidemia, unspecified

== ENCOUNTER 2021-02-21 09:24 | Emergency (ER) | payer BC ==
[~2021-02-21] VITALS: Ht 165.1 cm; Wt 76.1 kg
[2021-02-21 09:28] VITALS: Ht 165.1 cm; Wt 76.1 kg
== END 2021-02-21 10:41 | disposition home or self-care (01) ==
LOC: D.ER 09:24
DX: R04.0 Epistaxis (principal); Z79.01 Long term (current) use of anticoagulants; I10 Essential (primary) hypertension; J44.9 Chronic obstructive pulmonary disease, unspecified; J45.909 Unspecified asthma, uncomplicated